=== PATIENT | female | born 1955 | race Caucasian/White ===

== ENCOUNTER 2019-09-17 07:42 | Outpatient (CLI) | payer OTHER, SELFPAY ==
[2019-09-17 08:31] LABS: Basophils Percent Auto 0.2 % (0.2-1.2); Eosinophils Absolute Auto 0.1 K/mm3 (0-0.3); Eosinophils Percent Auto 2.4 % (0-4.4); Hematocrit 41.1 % (37.0-47.0); Hemoglobin 13.4 g/dL (12.0-15.0); Immature Granulocyte Absolute 0.01 K/mm3 (0.00-0.031); Immature Granulocyte Percent A 0.2 % (0-0.5); Lymphocytes Absolute Auto 1.92 K/mm3 (0.9-3.2); Lymphocytes Percent Auto 35.6 % (18.3-44.2); Mean Corpuscular HGB Conc 32.6 g/dl (32-36); Mean Corpuscular Hemoglobin 29.8 pg (26-34); Mean Corpuscular Volume 91.5 fl (80-100); Mean Platelet Volume 9.3 fl (7.4-10.4); Monocytes Absolute Auto 0.4 K/mm3 (0.1-0.6); Monocytes Percent Auto 6.9 % (2.6-8.5); Neutrophils Percent Auto 54.7 % (45.5-73.1); Platelet Count Result 281 k/mm3 (150-375); Red Blood Count 4.49 M/mm3 (4.2-5.4); Red Cell Distribution Width 12.9 % (11.5-14.5); White Blood Count 5.4 K/mm3 (4.5-10.0)
[2019-09-17 08:56] LABS: Alanine Aminotransferase 32 U/L (4-35); Albumin Level 4.3 g/dL (3.5-5.1); Alkaline Phosphatase 90 U/L (38-126); Aspartate Amino Transferase 36 U/L (14-36); Bilirubin,Total 0.7 mg/dL (0.2-1.3); Blood Urea Nitrogen 18 mg/dL (7-17); Calcium 9.1 mg/dL (8.4-10.2); Carbon Dioxide 27 mmol/L (22-30); Chloride 101 mmol/L (98-107); Cholesterol 199 mg/dL (0-200); Estimated Glomerular Filt Rate 56; Glucose 97 mg/dL (65-105); HDL Direct 55 mg/dL; Sodium 141 mmol/L (137-145); Triglycerides 86 mg/dL (<150)
[2019-09-17 09:07] LABS: LDL Cholesterol Direct 119 mg/dL
[2019-09-17 11:54] LABS: Vitamin D 25 Hydroxy 29.5 ng/mL
== END 2019-09-17 07:43 | disposition home or self-care (01) ==
PROVIDERS: PCP Family Medicine; Visit Provider Nurse Practitioner
DX: R53.83 Other fatigue (principal); E53.8 Deficiency of other specified B group vitamins; Z13.6 Encounter for screening for cardiovascular disorders; E55.9 Vitamin D deficiency, unspecified; E03.9 Hypothyroidism, unspecified; E78.5 Hyperlipidemia, unspecified; R30.0 Dysuria
CPT/HCPCS: 36415; 80053; 80061; 82306; 82607; 84443; 85025; 87086; 87088

== ENCOUNTER 2020-05-17 08:21 | Emergency (ER) | payer OTHER, SELFPAY ==
[2020-05-17 08:26] VITALS: BP 145/93; PULSE 70; RESP 16; TEMP 36.4; O2SAT 99
--- NOTE | 2020-05-17 08:38 | ED.URI ---
HPI - URI/Sore Throat General Chief Complaint: Upper Respiratory Infection Stated Complaint: sinus issues Time Seen by Provider: 05/17/20 08:32 Source: patient and RN notes reviewed Mode of arrival: ambulatory Limitations: no limitations History of Present Illness HPI Narrative: 64-year-old female presents with concern for 3-week history of sinus congestion, pressure, pain, drainage. Reports she has been taking Mucinex DM, using steam, using sinus rinses with little relief. Reports symptoms have worsened in the last several days. She denies fever, malaise, body aches, chills, cough, shortness of breath. MD elicited complaint: nasal congestion Related Data Allergies Allergy/AdvReac Type Severity Reaction Status Date / Time No Known Allergies Allergy Verified 05/17/20 08:27 Review of Systems Review of Systems: Narrative: CONSTITUTIONAL: Denies malaise, chills, sweats, or fever. EYES: Denies visual changes, redness, or discharge. ENT: Reports rhinorrhea, congestion, sinus pain. Denies otalgia and sore throat. CARDIOVASCULAR: Denies chest pain, palpitations, or edema. RESPIRATORY: Denies cough or dyspnea. GASTROINTESTINAL: Denies abdominal pain, nausea, vomiting, diarrhea SKIN: Denies rash or itching. MUSCULOSKELETAL: Denies myalgia. NEUROLOGIC: Denies headache. All systems reviewed & are unremarkable except as noted in HPI and below PMFSH Past Medical History Medical History (Updated 05/17/20 @ 08:39 by Giovanna Vieyra NP) Hyperlipidemia, unspecified Hypothyroidism, unspecified Social History Social History Smoking status: Never smoker Alcohol intake: current Comments At time of signature, agree with nursing past medical, surgical, social and family history. There is no relevant family history pertinent to the presenting complaint Exam Narrative: Exam Narrative: GENERAL: Well-appearing, well-nourished, and in no acute distress. HEAD: Normocephalic EYES: PERRLA, conjunctivae clear ENT: Nares clear, turbinates edematous and erythematous, sinus tenderness. Mucous membranes moist. TM pearly amezcua with dull light reflex bilaterally; no tragal tenderness. Oropharynx mildly erythematous without lesions. Tonsils not enlarged and without exudate, no drooling, no hoarseness, no trismus, uvula midline. NECK: Supple. No lymphadenopathy CHEST: Clear to auscultation, breath sounds equal. No wheezing, rhonchi, rales, or stridor. No respiratory distress, speaks in full sentences. HEART: Regular rate and rhythm. No murmur heard. SKIN: Warm, dry, no rash. NEURO: Alert and oriented x3. PSYCH: Normal mood and affect Course Course Emergency Course: Patient is aware of diagnosis, understands and agrees to treatment plan. Anticipatory guidance given. Patient agrees to follow-up as directed and is aware of reasons to seek care at the emergency department. Portions of this record may have been created with voice recognition software Vital Signs Vital signs: Vital Signs Temperature 97.5 F L 05/17/20 08:26 Pulse Rate 70 05/17/20 08:26 Respiratory Rate 16 05/17/20 08:26 Blood Pressure 145/93 H 05/17/20 08:26 Pulse Oximetry 99 05/17/20 08:26 Temperature 97.5 F L 05/17/20 08:26 Pulse Rate 70 05/17/20 08:26 Respiratory Rate 16 05/17/20 08:26 Blood Pressure 145/93 H 05/17/20 08:26 Pulse Oximetry 99 05/17/20 08:26 Reviewed. MDM - URI/Sore Throat MDM Narrative Medical decision making narrative: Differential diagnosis considered: Espinoza virus, strep pharyngitis, allergic rhinitis, upper respiratory tract infection, sinusitis, rhinosinusitis, nasopharyngitis. viral pharyngitis, otitis media, otitis externa, pneumonia, bronchitis, viral cough syndrome, viral syndrome, and influenza. Exam findings show no acute concerns or changes; patient is non-toxic appearing and is in no distress. Patient is appropriate for outpatient treatment and follow-up. Critical Care Time Critical Care Time Critical Care Time:
== END 2020-05-17 08:50 | disposition home or self-care (01) ==
PROVIDERS: Emergency Provider Nurse Practitioner; PCP Nurse Practitioner Family
DX: J01.90 Acute sinusitis, unspecified (principal); E78.5 Hyperlipidemia, unspecified; E03.9 Hypothyroidism, unspecified
CPT/HCPCS: 99213; G0463

== ENCOUNTER 2020-08-02 09:28 | Emergency (ER) | payer OTHER, SELFPAY ==
[2020-08-02 09:45] VITALS: BP 141/85; PULSE 81; RESP 16; TEMP 36.1; O2SAT 99
--- NOTE | 2020-08-02 10:14 | ED.URI ---
HPI - URI/Sore Throat General Chief Complaint: Upper Respiratory Infection Stated Complaint: HEADACHE/SINUS DRAINAGE Time Seen by Provider: 08/02/20 10:14 Source: patient and RN notes reviewed Mode of arrival: ambulatory Limitations: no limitations History of Present Illness HPI Narrative: 64-year-old female presents to the urgent care with complaints of I have a sinus infection . Patient states that she has had increased sinus pressure, pain, drainage for over 2 weeks. Has a history of chronic sinus issues and normally takes Mucinex and Zyrtec-D along with Flonase but has not been taking them for a couple of weeks due to the holidays. Patient states that over the last 2 weeks it has gradually gotten worse. States she had sinus surgery approximately 10 years ago and it did not help. Denies fevers, cough, chest pain, shortness of breath or abdominal pain Related Data Allergies Allergy/AdvReac Type Severity Reaction Status Date / Time No Known Allergies Allergy Verified 08/02/20 09:35 Review of Systems Review of Systems: Narrative: CONSTITUTIONAL: Denies fever, chills, or sweats. EYES: Denies visual changes, redness, or discharge. ENT: Positive for rhinorrhea, congestion, denies sore throat, or otalgia. CARDIOVASCULAR: Denies chest pain, palpitations, or edema. RESPIRATORY: Denies cough or dyspnea. GASTROINTESTINAL: Denies abdominal pain, nausea, vomiting, or diarrhea. GENITOURINARY: Denies dysuria or hematuria. SKIN: Denies rash or itching. MUSCULOSKELETAL: Denies back pain, joint pain, or myalgia. NEUROLOGIC: Denies headache, numbness, or weakness. PSYCHIATRIC: Denies anxiety or depression. All other systems reviewed are negative, except as documented in HPI. [facility] Past Medical History Medical History Hyperlipidemia, unspecified Hypothyroidism, unspecified Social History Social History Smoking status: Never smoker Alcohol intake: current Comments At the time of my signature, I reviewed and agree with the nursing past medical, surgical, social, and family history. There is no relevant family history pertinent to the patient complaint. Exam Narrative: Exam Narrative: GENERAL: This is a well-nourished, well-developed patient. Mildly ill in appearance. HEAD: normocephalic, atraumatic. EYES: PERRL. Sclera clear/white. Vision is grossly intact. EARS: External ears normal, auditory canals clear and without drainage, TMs without perforation. Hearing grossly intact. TMs clear fluid with bulging noted. No signs of infection NOSE: Positive nasal discharge, nares boggy with redness, positive for thick yellowish rhinorrhea. THROAT: Mucous membranes moist, posterior pharynx postnasal drip noted NECK: Neck supple, non-tender without lymphadenopathy, masses or thyromegaly. CARDIOVASCULAR: Regular rate and rhythm without murmurs, gallops, or rubs. RESPIRATORY: Clear to auscultation. Breath sounds equal bilaterally. No wheezes, rales, or rhonchi. GASTROINTESTINAL: Abdomen soft, non-tender, nondistended. . SKIN: warm, intact with no suspicious lesions or rash, good texture and turgor. NEURO: awake, alert, and oriented to person, place and time. There were no obvious focal neurologic abnormalities. EXTREMITIES: No clubbing, cyanosis, or edema. Course Vital Signs Vital signs: Vital Signs Temperature 97.0 F L 08/02/20 09:45 Pulse Rate 81 08/02/20 09:45 Respiratory Rate 16 08/02/20 09:45 Blood Pressure 141/85 H 08/02/20 09:45 Pulse Oximetry 99 08/02/20 09:45 Temperature 97.0 F L 08/02/20 09:45 Pulse Rate 81 08/02/20 09:45 Respiratory Rate 16 08/02/20 09:45 Blood Pressure 141/85 H 08/02/20 09:45 Pulse Oximetry 99 08/02/20 09:45 Reviewed and discussed blood pressure with patient and the importance of following up MDM - URI/Sore Throat Differential Diagnosis Differential diagnosis: Likely upper respiratory infection, otitis media, sinusitis, vir
== END 2020-08-02 10:35 | disposition home or self-care (01) ==
PROVIDERS: Emergency Provider Nurse Practitioner; PCP Family Medicine
DX: J32.9 Chronic sinusitis, unspecified (principal); H65.03 Acute serous otitis media, bilateral; E78.5 Hyperlipidemia, unspecified; E03.9 Hypothyroidism, unspecified
CPT/HCPCS: 99213; G0463

== ENCOUNTER 2021-08-03 10:01 | Emergency (ER) | payer OTHER, SELFPAY ==
[2021-08-03 10:09] VITALS: BP 148/80; PULSE 103; RESP 16; TEMP 36.6; O2SAT 99
--- NOTE | 2021-08-03 10:11 | ED.URI ---
HPI - URI/Sore Throat General Chief Complaint: Upper Respiratory Infection Stated Complaint: sinus infection Time Seen by Provider: 08/03/21 10:13 Source: patient and RN notes reviewed Mode of arrival: ambulatory Limitations: no limitations History of Present Illness HPI Narrative: 65-year-old female presents with concern for sinus pressure, congestion, copious drainage for 3 weeks. Reports she has been taking Mucinex and Zyrtec without relief. She reports cough. Reports she had chills today. She reports she has been vaccinated for Covid, was not tested for Covid at the onset of her illness. MD elicited complaint: cough and sore throat Related Data Home Medications Medication Instructions Recorded Confirmed levothyroxine [Synthroid] 100 mcg PO DAILY 08/03/21 08/03/21 Allergies Allergy/AdvReac Type Severity Reaction Status Date / Time No Known Allergies Allergy Verified 08/03/21 10:17 Review of Systems Review of Systems: CONSTITUTIONAL: Reports malaise, chills. Denies sweats, or fever. EYES: Denies visual changes, redness, or discharge. ENT: Reports rhinorrhea, congestion, sinus pain. Denies otalgia and sore throat. CARDIOVASCULAR: Denies chest pain, palpitations, or edema. RESPIRATORY: Reports cough. Denies dyspnea. GASTROINTESTINAL: Denies abdominal pain, nausea, vomiting, diarrhea SKIN: Denies rash or itching. MUSCULOSKELETAL: Denies myalgia. NEUROLOGIC: Denies headache. All systems reviewed & are unremarkable except as noted in HPI and below PMFSH Past Medical History Medical History Hyperlipidemia, unspecified Hypothyroidism, unspecified Social History Social History Smoking status: Never smoker Alcohol intake: current Comments At time of signature, agree with nursing past medical, surgical, social and family history. There is no relevant family history pertinent to the presenting complaint Exam Narrative: GENERAL: Well-appearing, well-nourished, and in no acute distress. HEAD: Normocephalic EYES: PERRLA, conjunctivae clear ENT: Nares clear, turbinates edematous and erythematous, sinus tenderness. Mucous membranes moist. TM pearly amezcua with dull light reflex bilaterally; no tragal tenderness. Oropharynx not erythematous without lesions. Tonsils not enlarged and without exudate, no drooling, no hoarseness, no trismus, uvula midline. NECK: Supple. No lymphadenopathy CHEST: Clear to auscultation, breath sounds equal. No wheezing, rhonchi, rales, or stridor. No respiratory distress, speaks in full sentences. HEART: Regular rate and rhythm. No murmur heard. SKIN: Warm, dry, no rash. NEURO: Alert and oriented x3. PSYCH: Normal mood and affect Course Course Emergency Course: Patient is aware of diagnosis, understands and agrees to treatment plan. Anticipatory guidance given. Patient agrees to follow-up as directed and is aware of reasons to seek care at the emergency department. Portions of this record may have been created with voice recognition software Level of Care: Express Care Visit Vital Signs Vital signs: Vital Signs Temperature 97.8 F 08/03/21 10:09 Pulse Rate 103 H 08/03/21 10:09 Respiratory Rate 16 08/03/21 10:09 Blood Pressure 148/80 H 08/03/21 10:09 Pulse Oximetry 99 08/03/21 10:09 Temperature 97.8 F 08/03/21 10:09 Pulse Rate 103 H 08/03/21 10:09 Respiratory Rate 16 08/03/21 10:09 Blood Pressure 148/80 H 08/03/21 10:09 Pulse Oximetry 99 08/03/21 10:09 Reviewed. Patient has been instructed to follow up with her primary care provider within the next week regarding her elevated blood pressure today. MDM - URI/Sore Throat MDM Narrative Medical decision making narrative: Differential diagnosis considered: Espinoza virus, strep pharyngitis, allergic rhinitis, upper respiratory tract infection, sinusitis, rhinosinusitis, nasopharyngitis. viral pharyngitis, otitis media, otitis externa, pneumonia, bronchiti
== END 2021-08-03 10:30 | disposition home or self-care (01) ==
PROVIDERS: Emergency Provider Nurse Practitioner; PCP Family Medicine
DX: J01.90 Acute sinusitis, unspecified (principal); E78.5 Hyperlipidemia, unspecified; E03.9 Hypothyroidism, unspecified
CPT/HCPCS: 99213; G0463

== ENCOUNTER 2022-05-30 10:26 | Emergency (ER) | payer MEDICARE, SELFPAY ==
[2022-05-30 10:34] VITALS: BP 135/75; PULSE 86; RESP 16; TEMP 37.1; O2SAT 100
--- NOTE | 2022-05-30 10:34 | ED.URI ---
HPI - URI/Sore Throat General Chief Complaint: Upper Respiratory Infection Stated Complaint: Headache/earache/sore throat/drainage Time Seen by Provider: 05/30/22 10:34 Source: patient Limitations: no limitations History of Present Illness HPI Narrative: 66-year-old female presents with complaint nasal congestion, sinus pressure and congestion, facial pain, postnasal drainage intermittent sore throat for 10 days. Afebrile. Taking Zyrtec Flonase and Mucinex with little relief. Reports normally gets a steroid and antibiotic to treat a sinus infection. Has been blowing out green drainage from nose. All systems reviewed and negative except as noted above. Related Data Home Medications Medication Instructions Recorded Confirmed levothyroxine 100 mcg tablet 100 mcg PO DAILY 08/03/21 05/30/22 (Synthroid) Allergies Allergy/AdvReac Type Severity Reaction Status Date / Time No Known Allergies Allergy Verified 05/30/22 10:29 Review of Systems Review of Systems: CONSTITUTIONAL: Denies fever, chills, or sweats. EYES: Denies visual changes, redness, or discharge. ENT: Reports rhinorrhea, congestion, sore throat, sinus pressure. Denies otalgia. CARDIOVASCULAR: Denies chest pain, palpitations, or edema. RESPIRATORY: Denies cough or dyspnea. GASTROINTESTINAL: Denies abdominal pain, nausea, vomiting, or diarrhea. GENITOURINARY: Denies dysuria or hematuria. SKIN: Denies rash or itching. MUSCULOSKELETAL: Denies back pain, joint pain, or myalgia. NEUROLOGIC: Denies headache, numbness, or weakness. PSYCHIATRIC: Denies anxiety or depression. All other systems reviewed are negative, except as documented in HPI. [facility] Past Medical History Medical History Hyperlipidemia, unspecified Hypothyroidism, unspecified Social History Social History Smoking status: Never smoker Alcohol intake: current Comments At time of signature, agree with nursing past medical, surgical, social and family history. There is no relevant family history pertinent to the presenting complaint. Exam Narrative: GENERAL: This is a well-nourished, well-developed patient, in no apparent distress. HEAD: normocephalic, atraumatic. EYES: PERRL. Sclera clear/white. Vision is grossly intact. EARS: External ears normal, auditory canals clear and without drainage, fluid to bilateral TMs, dull light reflex. No erythema or perforation. NOSE: External nose normal with clear nasal drainage, erythema to bilateral nares without swelling. Maxillary sinus tenderness bilateral. THROAT: Mucous membranes moist, clear postnasal drainage. NECK: Neck supple, non-tender without lymphadenopathy, masses or thyromegaly. CARDIOVASCULAR: Regular rate and rhythm without murmurs, gallops, or rubs. RESPIRATORY: Clear to auscultation. Breath sounds equal bilaterally. No wheezes, rales, or rhonchi. SKIN: warm, Dry, intact with no suspicious lesions or rash, good texture and turgor. NEURO: awake, alert, and oriented to person, place and time. There were no obvious focal neurologic abnormalities. EXTREMITIES: No joint tenderness, effusion, or edema noted. Course Course Level of Care: Express Care Visit Vital Signs Vital signs: Vital Signs Temperature 37.1 C 05/30/22 10:34 Pulse Rate 86 05/30/22 10:34 Respiratory Rate 16 05/30/22 10:34 Blood Pressure 135/75 05/30/22 10:34 Pulse Oximetry 100 05/30/22 10:34 Temperature 37.1 C 05/30/22 10:34 Pulse Rate 86 05/30/22 10:34 Respiratory Rate 16 05/30/22 10:34 Blood Pressure 135/75 05/30/22 10:34 Pulse Oximetry 100 05/30/22 10:34 Reviewed MDM - URI/Sore Throat MDM Narrative Medical decision making narrative: Patient is aware of diagnosis, understands and agrees to treatment plan. Anticipatory guidance given. Patient agrees to follow-up as directed and is aware of reasons to seek care at the emergency department. Portions of this record may
== END 2022-05-30 10:43 | disposition home or self-care (01) ==
PROVIDERS: Emergency Provider Nurse Practitioner Family; PCP Family Medicine
DX: J01.90 Acute sinusitis, unspecified (principal); E78.5 Hyperlipidemia, unspecified; E03.9 Hypothyroidism, unspecified
CPT/HCPCS: 99213; G0463

== ENCOUNTER 2022-07-08 15:49 | Outpatient (CLI) | payer MEDICARE, SELFPAY ==
[2022-07-08 19:45] LABS: Alanine Aminotransferase 32 U/L (6-35); Albumin Level 4.3 g/dL (3.5-5.1); Alkaline Phosphatase 92 U/L (38-126); Anion Gap 4 mmol/L (8-16); Aspartate Amino Transferase 43 U/L (14-36); Bilirubin,Total 0.8 mg/dL (0.2-1.3); Blood Urea Nitrogen 19 mg/dL (7-17); Carbon Dioxide 31 mmol/L (22-30); Chloride 101 mmol/L (98-107); Cholesterol 192 mg/dL (0-200); Estimated Glomerular Filt Rate > 60; Glucose 91 mg/dL (65-110); HDL Direct 51 mg/dL; Potassium 3.4 mmol/L (3.4-5.0); Sodium 136 mmol/L (137-145); Triglycerides 146 mg/dL (<150)
[2022-07-08 19:55] LABS: LDL Cholesterol Direct 98 mg/dL
[2022-07-08 20:02] LABS: Basophils Percent Auto 0.3 % (0.2-1.2); Eosinophils Absolute Auto 0.2 K/mm3 (0-0.3); Eosinophils Percent Auto 2.6 % (0-4.4); Hematocrit 41.4 % (37.0-47.0); Hemoglobin 13.4 g/dL (12.0-15.0); Immature Granulocyte Absolute 0.01 K/mm3 (0.00-0.031); Immature Granulocyte Percent A 0.2 % (0-0.5); Lymphocytes Absolute Auto 2.31 K/mm3 (0.9-3.2); Lymphocytes Percent Auto 39.3 % (18.3-44.2); Mean Corpuscular HGB Conc 32.4 g/dl (32-36); Mean Corpuscular Volume 92.6 fl (80-100); Mean Platelet Volume 9.6 fl (7.4-10.4); Monocytes Absolute Auto 0.5 K/mm3 (0.1-0.6); Monocytes Percent Auto 7.7 % (2.6-8.5); Neutrophils Absolute Auto 2.9 K/mm3 (1.3-6.7); Neutrophils Percent Auto 49.9 % (45.5-73.1); Platelet Count Result 263 k/mm3 (150-375); Red Blood Count 4.47 M/mm3 (4.2-5.4); Red Cell Distribution Width 13.6 % (11.5-14.5); White Blood Count 5.9 K/mm3 (4.5-10.0)
[2022-07-08 20:50] LABS: Vitamin D 25 Hydroxy 37.5 ng/mL
== END 2022-07-08 15:50 | disposition home or self-care (01) ==
LOC: ANHGOSHLAB 15:50
PROVIDERS: PCP Family Medicine; Visit Provider Nurse Practitioner Family
DX: E03.9 Hypothyroidism, unspecified (principal); I10 Essential (primary) hypertension; E78.5 Hyperlipidemia, unspecified; E55.9 Vitamin D deficiency, unspecified
CPT/HCPCS: 36415; 80053; 80061; 82306; 84443; 85025

== ENCOUNTER 2022-08-21 19:45 | Outpatient (NON) | payer MEDICARE, SELFPAY | END 2022-08-21 19:46 | disposition home or self-care (01) | PROVIDERS: PCP Family Medicine; Visit Provider Nurse Practitioner Family | DX: R39.9 Unspecified symptoms and signs involving the genitourinary system (principal) | CPT/HCPCS: 87086; 87088 ==

== ENCOUNTER → 2022-10-16 14:47 | Outpatient (CLI) | payer MEDICARE, SELFPAY ==
--- NOTE | ~2022-10-16 | MM_ITS ---
EXAMINATION: MM screening emile BI w ivan HISTORY: Screening TECHNIQUE: Craniocaudal and mediolateral oblique 3-D tomosynthesis images were obtained and synthetic 2-D images were generated. CAD analysis was submitted and interpreted. COMPARISON: No prior mammogram is available for comparison at this institution. BREAST PARENCHYMAL COMPOSITION: The breasts are almost entirely fatty. FINDINGS: There is no evidence of suspicious mass, calcification, or architectural distortion to sugg est malignancy in either breast. There has been no suspicious interval change. IMPRESSION: 1. No mammographic evidence of malignancy. 2. Recommend routine screening mammography in one year. BI-RADS Category 1: Negative Reviewed, dictated and finalized at location A.
--- NOTE | ~2022-10-16 | DEXA_ITS ---
Bone Density Report Name: WILLIE GEORGES Age: 67 Sex: Female Ethnicity: White Date of : 1955 Indication: postmenopausal; screening for osteoporosis; height loss; Referring Provider: Belle Juarez Study: Bone densitometry was performed. Exam Date: October 16, 2022 Accession number: [id number] Bone Density: Region BMD T-score Z-score Classification AP Spine (L1-L4) 0.943 -0.9 0.9 Normal Femoral Neck (Left) 0.655 -1.8 -0.2 Osteopenia Total Hip (Left) 0.813 -1.1 0.2 Osteopenia Femoral Neck (Right) 0.615 -2.1 -0.5 Osteopenia Total Hip (Right) 0.816 -1.0 0.2 Normal Total Hip Mean 0.815 -1.1 0.2 Osteopenia World Health Organization criteria for BMD impression classify patients as: Normal (T-score at or above -1.0), Osteopenia (T-score between -1.0 and -2.5), or Osteoporosis (T-score at or below -2.5). 10-year Fracture Risk(1): Major Osteoporotic Fracture 11% Hip Fracture 1.7% Reported Risk Factors: [place] (), Neck BMD=0.615, BMI=27.5 (1) FRAX(R) Version 3.08. Fracture probability calculated for an untreated patient. Fracture probability may be lower if the patient has received treatment. Clinical Information Provided by Patient: Has used the following medications: Vitamin D, Calcium, MTV, SYNTHROID Patient maximum height was 66.5 Menopause Age: 47 Drinks caffeinated beverages Onset of menses at age 13 Number of children 2 Impression: The patient has low bone mass, based on the Right Femoral Neck T-score. The patient has an estimated ten-year risk of hip fracture of 1.7% and an estimated ten-year risk of major fracture of 11%, based on the WHO FRAX algorithm. Discussion: BONE DENSITY IS LOW AT ONE OR MORE SKELETAL SITES. This patient's lowest T-score is low at one or more skeletal sites. It meets the World Health Organization's (WHO) criteria for ?low bone mass? (T-score between -1.0 and -2.5). The patient's 10-year risk of fracture as calculated by FRAX is less than the threshold where pharmacological therapy is recommended by the National Osteoporosis Foundation (NOF). However, all treatment decisions require clinical judgment and consideration of individual patient factors, including patient preferences, comorbidities, previous drug use, risk factors not captured in the FRAX model (e.g., frailty, falls, vitamin D deficiency, increased bone turnover, interval significant decline in bone density) and possible under or overestimation of fracture risk by FRAX. The patient should follow a healthful lifestyle (good nutrition with adequate calcium and vitamin D, and appropriate weight-bearing exercise). Follow-Up: Consider repeating this study in 2 to 3 years to reassess this patient's status, or sooner if there is some new clinical indication. Reported by: KAYLEE on
== END ==
PROVIDERS: PCP Nurse Practitioner Family; Visit Provider Nurse Practitioner Family
DX: Z12.31 Encounter for screening mammogram for malignant neoplasm of breast (principal); Z78.0 Asymptomatic menopausal state; M85.852 Other specified disorders of bone density and structure, left thigh; M85.851 Other specified disorders of bone density and structure, right thigh
CPT/HCPCS: 77063; 77067; 77080

== ENCOUNTER → 2023-07-10 09:45 | Outpatient (CLI) | payer MEDICARE, SELFPAY ==
--- NOTE | ~2023-07-10 | XR_ITS ---
Right Knee Technique: AP and lateral views were obtained. Clinical History: Pain Findings: No fracture or dislocation is seen. Osseous alignment is anatomic. Joint spaces are preserv ed without degenerative or erosive change. Soft tissues are unremarkable. No joint effusion is seen. Impression: Unremarkable right knee radiographs. Reviewed, dictated and finalized at [facility]. SPORTATION DISPATCH MANAGER Impression: Unremarkable right knee radiographs.
--- NOTE | ~2023-07-10 | XR_ITS ---
Left Knee Technique: AP and lateral views were obtained. Clinical History: Pain Findings: No fracture or dislocation is seen. Osseous alignment is anatomic. Joint spaces are preserv ed without degenerative or erosive change. Soft tissues are unremarkable. No joint effusion is seen. Impression: Unremarkable left knee radiographs. Reviewed, dictated and finalized at [facility]. SORTING SUPERVISOR Impression: Unremarkable left knee radiographs.
== END ==
PROVIDERS: PCP Nurse Practitioner Family; Visit Provider Nurse Practitioner Family
DX: M25.561 Pain in right knee (principal); M25.562 Pain in left knee
CPT/HCPCS: 73560

== ENCOUNTER 2023-08-27 10:00 | Outpatient (RCR) | payer MEDICARE, SELFPAY ==
--- NOTE | 2023-07-30 11:54 | OPREHPOC ---
Outpatient Therapy Plan of Care This is a Multidisciplinary Plan of Care that may contain components documented by all disciplines (PT, OT, and ST.) PT Problem 1 PT Problem #1 Knowledge Deficit PT Goal 1 Goal Pt to be IND with issued HEP Target Visit 8 PT Problem 2 PT Problem #2 Pain PT Goal 1 Goal Pt to report knee pain no greater than 3/10 in the last week. Target Visit 8 PT Goal 2 Goal Pt to report 75% improvement in overall symptoms. PT Problem 3 PT Problem #3 Impaired Range of Motion PT Goal 1 Goal Pt to demonstrate terminal knee extension to 0 deg . Target Visit 8 PT Problem 4 PT Problem #4 Impaired Functional Mobil PT Goal 1 Goal Pt to demonstrate floor to stand without UE support. PT Problem 5 PT Problem #5 Impaired Strength PT Goal 1 Goal Pt to improve global hip strength to grossly 4+/5 Target Visit 8
--- NOTE | 2023-07-30 11:54 | PTOPEVAL1 ---
Assessment and note entered by Renate Valle, PT, DPT Evaluation Information Assessment Status Evaluation Diagnosis low back and norm knee pain R>L Subjective Information Pt reports chronic back pain for many years, she has had multiple rounds of therapy for this in the past. She states her back is feeling pretty. She states her knees have hurts for the last couple of years, in the last couple of months she has noticed an increase in pain, specifically in the R knee. She has been using hot/cold modalities to treat this. She reports a stabbing pain inferior to her patella. She states she is used to walking 1.5 miles on the treadmill daily and would like to get back to this, she has reports difficulty getting up from the ground when playing with her grandchildren. Reported Pain Level Pain Score 0: Self Report Assessment PT Clinical Summary Caitlin presents to therapy today for her initial evaluation with a diagnosis of low back and norm knee pain, her primary complaint this date is R knee pain. Today she demonstrates decreased norm hip strength, decreased R knee ROM, positive knee meniscus test, and deviations during stair ambulation. Skilled therapy services are indicated to address the deficits noted above, to manage pain , and to improve functional mobility. Plan of Care Interventions Electrical Stimulation,Gait Training,Hot Pack/Cold Pack,Manual Therapy,Neuro Re-education,Patient/ Caregiver Educati,Therapeutic Activities, Therapeutic Exercise PT Services Indicated Yes Treatment Frequency and 2x/wk for 8 visits Duration These treatments will address the objective and functional deficits as defined above. The patient will be advanced safely and appropriately in order for the patient to progress towards his/her prior level of function. Additional exercises will be introduced and as well as a comprehensive home exercise program upon discharge, if needed, ?to ensure carryover of functional gains achieved in the clinic. This treatment plan has been reviewed and agreement upon by the patient.
--- NOTE | 2023-08-27 10:51 | PTOPDC ---
Assessment and note entered by Renate Valle, PT, DPT Evaluation Information Assessment Status Discharge Diagnosis low back and norm knee pain R>L Subjective Information Pt states her knee is doing okay, she states last night she got stabbing pains in the middle night. She states the stabbing pains are pretty consistent. Pt states her knee is overall the same since starting therapy, she states she same amount of good days and bad days. She states she can tell her muscles have gotten stronger but it has not changed her pain. Reported Pain Level Pain Score 0,4: Self Report Pain Score 0,3: Self Report Assessment PT Clinical Summary Caitlin presents to therapy today for her progress report following 8 visits of skilled therapy to treat her diagnosis of low back and norm knee pain, her primary complaint this date is R knee pain. Today she demonstrates improved R knee ROM, improved BLE strength, and improved body mechanics without an improvement in pain, tenderness, or functional mobility. D/t lack of progress with therapy despite consistency with her exercises, it was recommended pt follow up with her referring provider regarding next steps in her POC.
== END 2023-08-27 11:36 | disposition home or self-care (01) ==
LOC: ANHGOSHPT 10:00
PROVIDERS: PCP Nurse Practitioner Family; Visit Provider Nurse Practitioner Family
DX: M25.569 Pain in unspecified knee (principal); M54.9 Dorsalgia, unspecified
CPT/HCPCS: 97110; 97112; 97161; 97530

== ENCOUNTER 2023-10-05 15:30 | Outpatient (RCR) | payer MEDICARE, SELFPAY ==
--- NOTE | 2023-10-02 14:09 | OPREHPOC ---
Outpatient Therapy Plan of Care This is a Multidisciplinary Plan of Care that may contain components documented by all disciplines (PT, OT, and ST.) PT Problem 1 PT Problem #1 Knowledge Deficit PT Goal 1 Goal Pt to be IND with issued HEP Target Visit 12 PT Problem 2 PT Problem #2 Pain PT Goal 1 Goal Pt to report knee pain no greater than 3/10 in the last week. Target Visit 12 PT Goal 2 Goal Pt to report 50% improvement in overall symptoms. Target Visit 8 PT Problem 3 PT Problem #3 Impaired Functional Mobil PT Goal 1 Goal Pt to demonstrate neutral LE alignment with good form during a functional squat. Target Visit 12 PT Problem 4 PT Problem #4 Impaired Gait PT Goal 1 Goal Pt to report being able to walk for 20 mins without an increase in knee pain. Target Visit 12
--- NOTE | 2023-10-02 14:09 | PTOPEVAL1 ---
Assessment and note entered by Renate Valle, PT, DPT Evaluation Information Assessment Status Evaluation Diagnosis R knee pain Subjective Information Pt is here again for continued knee pain. She completed 4 weeks of therapy in July without an benefit. Since then she states she tried a few weeks of rest, which helped her knee pain, but she was unable to do the activities that she enjoys, walking for exercise. She has been doing the exercises intermittently. 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 She reports intermittent stabbing pain at her medial knee joint line at rest. Reported Pain Level Pain Score 5: Self Report Assessment PT Clinical Summary Gin presents to therapy today for her initial evaluation with a diagnosis of R knee pain. Today to reports medial joint line tenderness as well as tenderness of the posterior fossa and distal quad insertion. Special tests for the knee were negative and did not cause an increase in pain. She demonstrates norm hip abductor weakness that contributes to increased valgus stresses during functional mobility tasks. Skilled therapy services are indicated to address the deficits noted above, to manage pain, to improve stability, and to return to PLOF. Plan of Care Interventions Electrical Stimulation,Gait Training,Hot Pack/Cold Pack,Manual Therapy,Patient/Caregiver Educati, Therapeutic Activities,Therapeutic Exercise PT Services Indicated Yes Treatment Frequency and 1-2x/wk for 12 visits Duration These treatments will address the objective and functional deficits as defined above. The patient will be advanced safely and appropriately in order for the patient to progress towards his/her prior level of function. Additional exercises will be introduced and as well as a comprehensive home exercise program upon discharge, if needed, ?to ensure carryover of functional gains achieved in the clinic. This treatment plan has been reviewed and agreement upon by the patient.
--- NOTE | 2023-10-14 12:51 | PCPTNOTE ---
Patient called to cancel appointment 10/15/23 due to wanting to wait to hear back from insurance.
--- NOTE | 2023-12-09 10:08 | PTOPDC ---
Assessment and note entered by Blair Orantes, PT Evaluation Information Assessment Status Discharge - Pt Not Present Diagnosis R knee pain Subjective Information Pt is here again for continued knee pain. She completed 4 weeks of therapy in July without an benefit. Since then she states she tried a few weeks of rest, which helped her knee pain, but she was unable to do the activities that she enjoys, walking for exercise. She has been doing the exercises intermittently. 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 She reports intermittent stabbing pain at her medial knee joint line at rest. Assessment PT Clinical Summary Patient was approved for MRI at this time. Requests discharge from therapy at this time. Will be discharged. Please refer to last treatment note for discharge status. Plan of Care PT Services Indicated D/C to HEP
== END 2023-12-09 10:38 | disposition home or self-care (01) ==
LOC: ANHGOSHPT 15:30
PROVIDERS: PCP Family Medicine; Visit Provider Nurse Practitioner Family
DX: M23.8X2 Other internal derangements of left knee (principal)
CPT/HCPCS: 97110; 97140; 97161; 97530

== ENCOUNTER 2023-12-07 13:45 | Outpatient (CLI) | payer MEDICARE, SELFPAY ==
--- NOTE | ~2023-12-07 | MR_ITS ---
EXAMINATION: MR knee LT wo con DATE: 12/07/2023 14:56 INDICATION: Internal derangement of the left knee presenting with lateral left knee pain and swelling TECHNIQUE: Magnetic resonance imaging (MRI) of the left knee was performed without intravenous contra st. Sequences included coronal PD-weighted FSE, coronal PD-weighted FS FSE, sagittal T2-weighted FSE , sagittal PD-weighted FS FSE and axial PD weighted fat saturated FSE. COMPARISON: None. FINDINGS: Medial compartment: Medial meniscus is normal. Deep chondral ulceration and fissuring with underlying cortical irregulari ty and mild subarticular edema-like signal change at the central weightbearing medial femoral condyle . Lateral compartment: Small complex tear with both vertical and horizontal components at the body of the lateral meniscus. Deep chondral ulceration with additional cortical irregularity and mild subarticular edema-like signa l change at the central weightbearing lateral femoral condyle. There is additional deep chondral fiss uring with underlying spiculated edema-like signal change at the central aspect of the lateral patell ar facet. Patellofemoral compartment: Deep chondral fissuring with underlying subarticular edema-like signal change at the cephalad aspect of the patellar apical ridge and at the inferomedial aspect of the medial patellar facet. Partial-thi ckness chondral ulceration and deep fissuring with additional cortical irregularity and mild edema-li ke signal change at the caudal aspect of the trochlear groove and small portion of the immediately ad jacent inferior aspect of the medial and lateral trochlea. Ligaments and tendons: Anterior and posterior cruciate ligaments are normal. The medial collateral ligament and fibular maco ateral ligament complex are normal. The extensor mechanism is normal. The visualized medial and later al hamstring tendons as well as the iliotibial band are normal. Fluid: Physiologic amount of fluid in the joint space. No loose osteochondral bodies identified. Mild prepat ellar edema without discrete bursal fluid collection. Osseous/other: No fracture or pathologic marrow replacing process. IMPRESSION: 1. Small complex tear at the body of the lateral meniscus. 2. 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 Reviewed, dictated and finalized at location B. IMPRESSION: 1. Small complex tear at the body of the lateral meniscus. 2. Mild osteoarthritis with regions of high-grade chondromalacia in all 3 cate rtments of the knee.
--- NOTE | ~2023-12-07 | MR_ITS ---
EXAMINATION: MR knee RT wo con DATE: 12/07/2023 14:56 INDICATION: Internal derangement of the right knee with right knee pain TECHNIQUE: Magnetic resonance imaging (MRI) of the right knee was performed without intravenous contr ast. Sequences included coronal PD-weighted FSE, coronal PD-weighted FS FSE, sagittal T2-weighted FS E, sagittal PD-weighted FS FSE and axial PD weighted fat saturated FSE. COMPARISON: None. FINDINGS: Medial compartment: Medial extrusion of the medial meniscal body. Complex tear involving posterior horn and posterior bod y of the medial meniscus. Partial-thickness chondral ulceration and deep fissuring at the anterior to central weightbearing medial femoral condyle and along the medial half the medial tibial plateau, th e latter with prominent subarticular edema-like and mild subarticular cystlike change. Lateral compartment: Lateral meniscus is normal. Articular cartilage is normal. Patellofemoral compartment: Deep chondral ulceration along the cephalad aspect of the patellar apical ridge. Partial-thickness ch ondral fissuring involving greater than 50% the cartilage thickness along the more caudal aspect of t he apical ridge and immediately adjacent portions of the medial and lateral patellar facets. Tiny sub articular cystlike changes along the patellar apical ridge. Deep chondral ulceration with underlying cortical irregularity and cystlike changes at the inferior aspect of the medial trochlea. Remaining t rochlear cartilage appears relatively preserved. Ligaments and tendons: Anterior and posterior cruciate ligaments are normal. The medial collateral ligament and fibular maco ateral ligament complex are normal. The extensor mechanism is normal. The visualized medial and later al hamstring tendons as well as the iliotibial band are normal. Fluid: Physiologic amount of fluid in the joint space. No loose osteochondral bodies identified. Mild prepat ellar edema without discrete bursal fluid collection. Osseous/other: No fracture or pathologic marrow replacing process. IMPRESSION: 1. Complex medial meniscal tear. 2. Mild to moderate osteoarthritis medial compartment and mild osteoarthritis in the patellofemoral c ompartment, both compartments with regions of both moderate and high-grade chondromalacia. Reviewed, dictated and finalized at location B. IMPRESSION: 1. Complex medial meniscal tear. 2. Mild to moderate osteoarthritis medial compartment and mild osteoarthritis i n the patellofemoral compartment, both compartments with regions of both modera te and high-grade chondromalacia.
== END 2023-12-07 13:46 ==
LOC: GOSHIMG 13:46
PROVIDERS: PCP Nurse Practitioner; Visit Provider Nurse Practitioner Family
DX: S83.272A Complex tear of lateral meniscus, current injury, left knee, initial encounter (principal); S83.231A Complex tear of medial meniscus, current injury, right knee, initial encounter; M17.0 Bilateral primary osteoarthritis of knee; X58.XXXA Exposure to other specified factors, initial encounter
CPT/HCPCS: 73721

== ENCOUNTER 2023-12-24 10:45 | Outpatient (CLI) | payer MEDICARE, SELFPAY ==
--- NOTE | ~2023-12-24 | MM_ITS ---
EXAMINATION: MM screening emile BI w ivan HISTORY: Screening TECHNIQUE: Craniocaudal and mediolateral oblique 3-D tomosynthesis images were obtained and synthetic 2-D images were generated. CAD analysis was submitted and interpreted. COMPARISON: 10/16/2022 BREAST PARENCHYMAL COMPOSITION: Not dense: There are scattered areas of fibroglandular density. FINDINGS: There is no evidence of suspicious mass, calcification, or architectural distortion to sugg est malignancy in either breast. There has been no suspicious interval change. IMPRESSION: 1. No mammographic evidence of malignancy. 2. Recommend routine screening mammography in one year. BI-RADS Category 1: Negative Reviewed, dictated and finalized at location B.
== END 2023-12-24 10:46 ==
LOC: MICIMG 10:47
PROVIDERS: PCP Obstetrics & Gynecology; Visit Provider Nurse Practitioner Family
DX: Z12.31 Encounter for screening mammogram for malignant neoplasm of breast (principal)
CPT/HCPCS: 77063; 77067

== ENCOUNTER 2024-05-24 12:30 | Outpatient (RCR) | payer MEDICARE, SELFPAY ==
--- NOTE | 2024-04-21 08:55 | PTOPEVAL1 ---
Assessment and note entered by Becka Jerry, PT Evaluation Information Assessment Status Evaluation Diagnosis pain in R knee, Oth tear of R knee meniscus, Unilat Primary OA R knee ICD-10 Condition Codes (PT) M25.561,Difficulty Walking R26.2,Weakness R53.1 Onset February 2023 Subjective Information Pt states was supposed to be getting a surgery tomorrow but insurance denied yesterday. Pt had already done therapy to justify MRI. Then was told had to do therapy again and medication to justify arthroscopic surgery. 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 Went to therapy in July without success. Recently recieved steroid injuection in right knee 04/14/24. Reports maybe helped a little bit but last night was really bad again. States sometimes knee gives out now. PLOF: gardening, walking on unlevel surfaces, would walk 4-5 days a week 1.5 miles on the treadmill. Was able to get on ground to play with grand kids When has pain will take OTC medication that temporarily helps. Has iced and used heat in the past but is also temporary. Reported Pain Level Pain Score 2: Self Report Assessment PT Clinical Summary Pt presents with right knee arthritis and meniscus tear. Had attended therapy previously in the year for knee pain that began in February of last year. Therapy failed, received MRI which shows meniscal tear. Was scheduled for surgery but insurance denied stating needed to go through medication management and another round of therapy prior to surgical intervention. Pt demo's gait abnormality, decreased flexibility, and weakness of multiple muscles of the RLE. Pt will benefit from therapy to address deficits, in order to prepare for surgical intervention to speed recovery and return to PLOF. Plan of Care Interventions Electrical Stimulation,Gait Training,Hot Pack/Cold Pack,Manual Therapy,Neuro Re-education,Patient/ Caregiver Educati,Therapeutic Activities, Therapeutic Exercise,Self-Care/Home Management, Ultrasound,Other PT Services Indicated Yes Treatment Frequency and 1x weekly x 6 weeks Duration These treatments will address the objective and functional deficits as defined above. The patient will be advanced safely and appropriately in order for the patient to progress towards his/her prior level of function. Additional exercises will be introduced and as well as a comprehensive home exercise program upon discharge, if needed, ?to ensure carryover of functional gains achieved in the clinic. This treatment plan has been reviewed and agreement upon by the patient.
--- NOTE | 2024-04-21 08:55 | OPREHPOC ---
Outpatient Therapy Plan of Care This is a Multidisciplinary Plan of Care that may contain components documented by all disciplines (PT, OT, and ST.) PT Problem 1 PT Problem #1 Knowledge Deficit PT Goal 1 Goal / Goal Update Pt will be independent in HEP Pt will verbalize understanding of diagnosis and prognosis Target Visit 6 PT Problem 2 PT Problem #2 Pain PT Goal 1 Goal / Goal Update Pt will report greatest pain level at 3/10 or less to improve ADLs and activities Target Visit 6 PT Problem 3 PT Problem #3 Impaired Strength PT Goal 1 Goal / Goal Update Pt will demo equal strength RLE and LLE in all tested planes Target Visit 3 PT Goal 2 Goal / Goal Update Pt will demo strength of 4/5 in all tested planes Target Visit 6 PT Problem 4 PT Problem #4 Impaired Gait PT Goal 1 Goal / Goal Update Pt will demo improved gait pattern within pain tolerance to improve pattern for post-surgical recovery Target Visit 6
--- NOTE | 2024-05-24 13:32 | PTOPDC ---
Assessment and note entered by Blair Orantes, PT Evaluation Information Assessment Status Discharge Diagnosis pain in R knee, Oth tear of R knee meniscus, Unilat Primary OA R knee ICD-10 Condition Codes (PT) M25.561,Difficulty Walking R26.2,Weakness R53.1 Onset February 2023 Subjective Information Patient reports that she feels her muscles are stronger but she is still having good days and very bad days. She is still significantly limited by pain on most days. She is following up with MD on 06/16/24 to discuss further intervention including surgery. Majority of pain is localized to the knee but she still does have some dependent swelling in the right foot at times. Morning are dependent on activity with movement. Reported Pain Level Pain Score 3: Self Report Assessment PT Clinical Summary Patient has seen objective strength improvement at this time. ROM continues to be lacking in terminal stance as measured today. Currently her greatest issue is pain related to weight bearing. She continues to have painful gait with notable hip compensation to complete gait cycle. Given patient anatomy and structural compensations she remains a candidate for surgical evaluation. Reflects needs for continued hip strengthening to ensure senior living functional improvement. Plan of Care PT Services Indicated Yes
== END 2024-05-25 09:15 | disposition home or self-care (01) ==
LOC: ANHGOSHPT 12:30
PROVIDERS: PCP Family Medicine; Visit Provider Orthopaedic Surgery
DX: M25.561 Pain in right knee (principal); S83.241A Other tear of medial meniscus, current injury, right knee, initial encounter; M17.11 Unilateral primary osteoarthritis, right knee
CPT/HCPCS: 97014; 97110; 97116; 97161; 97530; G0283

== ENCOUNTER 2024-06-20 13:49 | Outpatient (CLI) | payer MEDICARE, SELFPAY ==
--- NOTE | ~2024-06-20 | XR_ITS ---
XR finger 3rd LT min 2V Ordering provider: Belle Juarez NP History: . S69.92XA - Unspecified injury of left wrist, hand and fin... . Comparison: None. FINDINGS: BONES: Small bony fragment seen at the base of the distal phalanx of the left third finger which may indicate avulsion fracture. This also may be degenerative. Similar cysts seen opposite the interphala ngeal joints of the second finger. Small lucency is also seen in the second phalanx laterally with os teopenia of the bones. Evaluation for rheumatoid arthritis is advised. Cystic changes in the capitate bone is also seen. JOINT SPACES: Osteoarthritic changes between the scaphoid bone and trapezium is noted. Osteoarthritic changes of the first carpometacarpal joint. SOFT TISSUES: Normal. IMPRESSION: Possible avulsion fracture at the base of the distal phalanx of the left middle finger posteriorly. T his also may be degenerative. Similar appearances seen in the interphalangeal joints area of the seco nd finger. Clinical correlation advised. Small lucency in the distal phalanx base and in the capitate bone most of the bones which raises the possibility of rheumatoid arthritis. Osteoarthritic changes between the scaphoid and trapezium and in the first carpometacarpal joints. Reviewed, dictated and finalized at location A. INE PECAN GATHERER IMPRESSION: Possible avulsion fracture at the base of the distal phalanx of the left middle finger posteriorly. This also may be degenerative. Similar appearances seen in the interphalangeal joints area of the second finger. Clinical correlation adv ised. Small lucency in the distal phalanx base and in the capitate bone most of the b ones which raises the possibility of rheumatoid arthritis. Osteoarthritic changes between the scaphoid and trapezium and in the first carp ometacarpal joints.
== END 2024-06-20 13:50 | disposition home or self-care (01) ==
LOC: GOSHIMG 13:49
PROVIDERS: PCP Nurse Practitioner Family; Visit Provider Nurse Practitioner Family
DX: S69.92XA Unspecified injury of left wrist, hand and finger(s), initial encounter (principal); X58.XXXA Exposure to other specified factors, initial encounter; M18.12 Unilateral primary osteoarthritis of first carpometacarpal joint, left hand; M19.09 Primary osteoarthritis, other specified site
CPT/HCPCS: 73140

== ENCOUNTER 2024-06-27 08:17 | Outpatient (CLI) | payer MEDICARE, SELFPAY ==
[2024-06-27 14:08] LABS: Alanine Aminotransferase 18 U/L (6-35); Albumin Level 4.4 g/dL (3.5-5.1); Alkaline Phosphatase 83 U/L (38-126); Anion Gap 4 mmol/L (4-12); Aspartate Amino Transferase 46 U/L (14-36); Bilirubin,Total 0.9 mg/dL (0.2-1.3); Blood Urea Nitrogen 17 mg/dL (7-17); Calcium 8.9 mg/dL (8.4-10.2); Carbon Dioxide 25 mmol/L (22-30); Chloride 109 mmol/L (98-107); Cholesterol 194 mg/dL (0-200); Estimated Glomerular Filt Rate 45; Glucose 87 mg/dL (65-110); HDL Direct 53 mg/dL; Potassium 4.2 mmol/L (3.4-5.0); Sodium 138 mmol/L (137-145); Triglycerides 166 mg/dL (<150)
[2024-06-27 14:10] LABS: Basophils Percent Auto 0.5 % (0.2-1.2); Eosinophils Absolute Auto 0.1 K/mm3 (0-0.3); Eosinophils Percent Auto 3.2 % (0-4.4); Hematocrit 42.9 % (37.0-47.0); Hemoglobin 13.4 g/dL (12.0-15.0); Immature Granulocyte Absolute 0.01 K/mm3 (0.00-0.031); Immature Granulocyte Percent A 0.2 % (0-0.5); Lymphocytes Absolute Auto 1.55 K/mm3 (0.9-3.2); Lymphocytes Percent Auto 37.8 % (18.3-44.2); Mean Corpuscular HGB Conc 31.2 g/dl (32-36); Monocytes Absolute Auto 0.4 K/mm3 (0.1-0.6); Monocytes Percent Auto 8.5 % (2.6-8.5); Neutrophils Percent Auto 49.8 % (45.5-73.1); Platelet Count Result 246 k/mm3 (150-375); Red Blood Count 4.47 M/mm3 (4.2-5.4); Red Cell Distribution Width 13.1 % (11.5-14.5); White Blood Count 4.1 K/mm3 (4.5-10.0)
[2024-06-27 14:20] LABS: LDL Cholesterol Direct 91 mg/dL
[2024-06-27 14:25] LABS: Free T4 Free Thyroxine 1.53 ng/dL (0.78-2.19); Vitamin D 25 Hydroxy 28.7 ng/mL
[2024-06-27 14:37] LABS: Thyroid Stimulating Hormone 0.331 uIU/mL (0.465-4.680)
[2024-07-02 13:03] LABS: Vitamin D 1,25 (OH)2 Total 46 pg/mL (18-72); Vitamin D2 1,25 (OH)2 <8 pg/mL; Vitamin D3 1,25 (OH)2 46 pg/mL
== END 2024-06-27 08:18 | disposition home or self-care (01) ==
PROVIDERS: Nurse Practitioner Family; PCP Nurse Practitioner Family; Visit Provider Nurse Practitioner
DX: E03.9 Hypothyroidism, unspecified (principal); E55.9 Vitamin D deficiency, unspecified; E78.5 Hyperlipidemia, unspecified
CPT/HCPCS: 36415; 80053; 80061; 82306; 82652; 84439; 84443; 85025

== ENCOUNTER 2024-08-03 01:59 | Day surgery (SDC) | payer MEDICARE, SELFPAY ==
--- NOTE | 2024-07-18 11:10 | PC.NURSE ---
Report to the Outpatient Waiting Room, entrance under the green pavilion located off [facility], at time 9 AM on date _08/03/24 . Planned Procedure Time: __11 AM .? Time changes happen often and if your time is changed the preop area will call you the afternoon before. - You and your visitor will be asked to self-screen and do not enter if you have any COVID symptoms. Please call surgeon if you need to reschedule. - A mask is optional within the hospital at this time. Patients may have clear liquids (water, carbonated beverages, clear teas, apple juice) until 3 hours prior to surgery( 8 AM) with a maximum of 20 ounces. - No food from midnight until time of surgery and no smoking. This includes no chewing gum, candy or mints. - Take only the following medications with a SIP of water on the morning of surgery: LEVOTHYROXINE DO NOT STOP ANY OF YOUR OTHER PRESCRIPTION MEDICATIONS PRIOR TO SURGERY EXCEPT THE FOLLOWING Medications to discontinue per physician ____IBUPROFEN PER DR MORA Please no make-up, nail iranian, hairspray, perfume, deodorant, or body powder the day of surgery.? No jewelry (including any body piercings) or valuables the day of surgery, leave them at home.? Please take a shower or bath the night before, or the morning of, surgery with an antibacterial soap.? Wear comfortable, loose fitting clothing.? Children are encouraged to wear pajamas. - Jewelry must be removed prior to entering the operating room.? Rings and piercings that are not removed may be cut off. - The hospital will not accept responsibility for valuables.? - Please leave all valuables, including medications, at home the day of surgery. If you are going home after surgery, a licensed deliver driver must drive you home.? - NO public transportation without another adult if you receive anesthesia. - We recommend that an adult stay with you for 24 hours following discharge. - We also recommend that you do not drive, make important decision, drink alcoholic beverages, or take any drugs that were not prescribed by your health care provider for at least 24 hours after your discharge time. Follow any additional instructions given to you from your surgeon. Telephone instructions given to ___PATIENT and asked if any additional questions and then verbalized understanding. Patient advised to call surgeon office or pre surgery nurse liaison [phone] if any additional questions.
[2024-07-18 11:23] VITALS: BMI 33.7
--- NOTE | 2024-08-02 12:26 | P.PNAN_ITS ---
Anes - Initial Pre Proc Eval Procedure: Operation Date: 08/03/24 11:00 Proposed Procedures p Right Knee Arthroscopy, Proceed As Indicated - Zackery Estrella MD Date/Time: 08/02/24 12:26 Surgeon: Zackery Estrella MD Pre Op Diagnosis: right knee medial meniscus tear Patient Data Age: 68 Gender: F Height: 1.52 m Weight: 78.5 kg Allergies Allergy/AdvReac Type Severity Reaction Status Date / Time No Known Allergies Allergy Verified 08/03/24 10:53 Home Medications ?Medication ?Instructions ?Recorded ?Confirmed ?Type cetirizine 10 mg tablet (Zyrtec) 10 mg PO DAILY PRN allergy 06/20/24 07/18/24 Rx symptoms #30 tabs fluticasone propionate 50 1 spray intranasal DAILY #16 grams 06/20/24 08/03/24 Rx mcg/actuation nasal spray,suspension (Flonase Allergy Relief) guaifenesin 600 mg tablet, 600 mg PO BID #30 tabs 06/20/24 08/03/24 Rx extended release 12 hr (Mucinex) levothyroxine 88 mcg tablet 88 mcg PO DAILY #90 tabs 06/28/24 08/03/24 Rx chlorhexidine gluconate 4 % 1 applic topical ONCE #237 mL 07/18/24 07/18/24 Rx topical liquid (Hibiclens) ibuprofen 400 mg tablet (IBU) 400 mg PO PRN 07/18/24 07/18/24 History Patient hx anesthesia problems: none Family hx anesthesia problems: none Results Review: All pre-operative results and documents have been reviewed as part of the pre- operative evaluation. [facility] [place] Past Medical History Medical History (Updated 07/18/24 @ 10:38 by AZUL Faith) Nausea after anesthesia History of kidney stones (~01/28/12) Vitamin D deficiency Hyperlipidemia, unspecified Hypothyroidism, unspecified Surgical History Surgical History History of cataract surgery x2 History of bunionectomy x2 History of carpal tunnel surgery Hx of thyroidectomy (~1999) Hx of foot surgery Family History Family History Grandparent Acute myocardial infarction Father Hypertension Unknown High cholesterol Arthritis Social History Social History Social History: Gin is , she and her recently moved back to [place] from [place], [place]. She is helping with the care of her elderly mother. 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 Smoking status: Never smoker Alcohol intake: current Alcohol use details: socially Substance use: never Substance use type: does not use Lack of Transportation: No Lack of Food: Never True Current Housing: I Have Housing Concerned About Future Housing: No Difficulty Paying Gas/Electric Bills: No Difficulty Paying for Meds: No Currently Unemployed: No Education: Associate Degree Difficulty w/ Childcare or Family Care: No Living arrangements: with family Additional living arrangements comments: Occupation/Education: retired Gender identity (if verbalized by the patient): Female Sexual Orientation (if Verbalized by the Patient): Straight or Heterosexual Spiritual care concerns: No Agree to blood products: Yes Anes - Eval Final PreProcedure Day of Procedure 08/02/24 12:26 Patient weight: normal Heart: regular rate and rhythm Lungs: clear to auscultation Airway: Mallampati scale class II Neurological: alert and oriented Last oral intake: >/= 8 hours ASA classification: III Emergent: no Anesthetic plan: proceed Anesthesia type and monitoring: general LMA and standard monitoring Results Review: All pre-operative results and documents have been reviewed as part of the pre- operative evaluation. Informed Consent: The patient's anesthetic plan and its attendant risks and benefits were discussed with the patient/family/POA. Questions were solicited and answers provided to the satisfaction of the patient/family/POA.
[2024-08-03] VITALS (12 sets, daily range): BP systolic 107–162; BP diastolic 70–100; PULSE 63–73; RESP 14–20; TEMP 36.4–36.6; O2SAT 93–100; BMI 28.5
--- NOTE | 2024-08-03 07:07 | WPDHPUPDATE1 ---
History and Physical Update Update Date/Time: 08/03/24 07:07 History and Physical has been reviewed, including an updated exam of the patient. There are NO changes in the patient's condition. Risks, benefits, and alternatives have been discussed and questions answered. Patient agrees to proceed with procedure.
[2024-08-03] MEDS: LACTATED RINGERS 1,000 ML 30 ML IV CONT ×2 (09:55→13:53)
[2024-08-03] MEDS: ACETAMINOPHEN 500 MG TABLET 1000 MG PO (10:19)
[2024-08-03] MEDS: CELECOXIB 200 MG CAPSULE PO (10:19)
--- NOTE | 2024-08-03 10:45 | SUR.PREOP ---
1045- Patient declined crutch training today. Patient verbalized understanding of crutch use after instruction from PT prior to hospital visit.
[2024-08-03] MEDS: ceFAZolin 2 GM/D5W 50 ML 2 GM/50 ML BAG IVPB (11:32)
[2024-08-03] MEDS: BUPivacaine HCL 0.5% 10 ML AMP 30 ML INFILTRATE (12:08)
--- NOTE | 2024-08-03 13:17 | W.PM.PROC2 ---
Procedure Note - Detailed Date of Procedure 08/03/24 Pre-op Diagnosis right knee medial meniscus tear, lateral meniscus tear Post-op Diagnosis Same Procedure Performed RIGHT KNEE SCOPE Surgeon Zackery Estrella MD Anesthesia General Description of Procedure PATIENT WAS TAKEN TO THE OR. THE RIGHT LEG WAS PREPPED AND DRAPED STERILE. TROCARS WERE PLACED IN THE USUAL FASHION. CAMERA WAS INTRODUCED. 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 THERE WAS A LOT OF SYNOVITIS IN ALL COMPARTMENTS. THE MEDIAL COMPARTMENT SHOWED CHONDROMALACIA TO THE MEDIAL FEMORAL CONDYLE. THERE WAS A NEAR FULL THICKNESS CARTILAGE DEFECT TO THE MEDIAL PLATEAU. A SHAVER WAS USED TO PREFORM A CHONDROPLASTY. THERE WAS A COMPLEX MEDIAL MENISCUS TEAR. THE TEAR WAS RESECTED WITH A BITER AND A SHAVER DOWN TO A SMOOTH BASE. THE ACL WAS INTACT. THE LATERAL MENISCUS HAD A DEGENERATIVE TEAR TO THE MAIN ROOT. A PARTIAL MENISCECTOMY WAS PREFORMED. THE LATERAL COMPARTMENT HAD MINIMAL CHONDROMALACIA. CHONDROPLASTY WAS PREFORMED. A SYNOVECTOMY WAS PREFORMED WELL. THE PATELLO FEMORAL JOINT UNDERWENT CHONDROPLASTY. THERE WAS GRADE 3 CHONDROMALACIA IN PART OF THE TROCHLEA AND PART OF THE PATELLA. SYNOVECTOMY WAS PREFORMED IN THE SUPERIOR MEDIAL COMPARTMENT. THE WOUNDS WERE APPROXIMATED WITH 4.0 NYLON. STERILE DRESSING WAS APPLIED. PATIENT WAS EXTUBATED. Estimated Blood Loss 5 Complications No immediate complications Condition Stable Disposition PACU
[2024-08-03] MEDS: fentaNYL CITRATE INJ (*CRX) 100 MCG/2 ML VIAL 25 MCG IV PUSH (13:41)
[2024-08-03] MEDS: ONDANSETRON INJ 4 MG/2 ML VIAL IV PUSH (13:47)
--- NOTE | 2024-08-03 14:50 | SUR.PHASEII ---
1443- MD Serrato contacted - Pt still nauseated after ordered Zofran. New orders for RN to give 12.5mg Benadryl IVP and pepsid 20mg IVP as needed.
[2024-08-03] MEDS: diphenhydrAMINE HCl INJ 50 MG/ML VIAL 12.5 MG IV PUSH (14:53)
== END 2024-08-03 15:48 | disposition home or self-care (01) ==
PROVIDERS: PCP Nurse Practitioner Family; Visit Provider Orthopaedic Surgery
PROC: (CPT 29870; principal; 2024-08-03 11:00)
DX: S83.231A Complex tear of medial meniscus, current injury, right knee, initial encounter (principal); M94.261 Chondromalacia, right knee; M65.861 Other synovitis and tenosynovitis, right lower leg; G89.29 Other chronic pain; E55.9 Vitamin D deficiency, unspecified; E78.5 Hyperlipidemia, unspecified; E03.9 Hypothyroidism, unspecified; X58.XXXA Exposure to other specified factors, initial encounter; Z79.1 Long term (current) use of non-steroidal anti-inflammatories (NSAID); Z98.890 Other specified postprocedural states; Z87.442 Personal history of urinary calculi; Z82.49 Family history of ischemic heart disease and other diseases of the circulatory system
CPT/HCPCS: 29881; 29876; A9270; J0690; J1100; J1200; J1596; J2003; J2250; J2371; J2405; J2704; J3010; J7120

== ENCOUNTER 2024-10-31 10:15 | Outpatient (RCR) | payer MEDICARE, SELFPAY ==
--- NOTE | 2024-10-04 10:30 | OPREHPOC ---
Outpatient Therapy Plan of Care This is a Multidisciplinary Plan of Care that may contain components documented by all disciplines (PT, OT, and ST.) PT Problem 1 PT Problem #1 Knowledge Deficit PT Goal 1 Goal / Goal Update [place] with HEP Target Visit 4 PT Goal 2 Goal / Goal Update Report no pain greater than 2/10 for 2 consecutive weeks Target Visit 8 PT Problem 2 PT Problem #2 Impaired Range of Motion PT Goal 1 Goal / Goal Update 1. Achieve terminal knee extension bilaterally 2. Improve R ankle dorsiflexion to 10+ degrees to help achieve terminal stance Target Visit 8 PT Problem 3 PT Problem #3 Impaired Strength PT Goal 1 Goal / Goal Update Improve R quad strength to 5/5 to improve patellar stability with ADLs Target Visit 8 PT Problem 4 PT Problem #4 Impaired Gait PT Goal 1 Goal / Goal Update Ambulate with even stride length bilaterally achieving terminal stance
--- NOTE | 2024-10-04 10:31 | PTOPEVAL1 ---
Assessment and note entered by Blair Orantes, PT Evaluation Information Assessment Status Evaluation Diagnosis Unilateral OA of right knee ICD-10 Condition Codes (PT) Pain in right knee M25.561 Onset 08/03/2024 Subjective Information Reports that she has noted some increased pain with recovery process. She has still been taking pain medication and about 2 weeks ago she encountered stabbing pain in her knee with a flare up. Pain is anterior medial on the knee. She is having trouble with bending and straightening of the knee affecting her walking. Some pain is present at night as well. Her left knee is giving her a lot of trouble as well and she is awaiting potential surgery on that. Reported Pain Level Pain Score 1: Self Report Assessment PT Clinical Summary Patient presents with soft tissue irritation, lacking terminal extension, and gait deficits affecting mobility and knee pain. Patient will benefit form skilled therapy to address these deficits to restore terminal knee motion and quad control for improved ADL performance. Plan of Care Interventions Electrical Stimulation,Gait Training,Hot Pack/Cold Pack,Manual Therapy,Neuro Re-education, Therapeutic Activities,Therapeutic Exercise PT Services Indicated Yes Treatment Frequency and 2x/week for 8 visits Duration These treatments will address the objective and functional deficits as defined above. The patient will be advanced safely and appropriately in order for the patient to progress towards his/her prior level of function. Additional exercises will be introduced and as well as a comprehensive home exercise program upon discharge, if needed, ?to ensure carryover of functional gains achieved in the clinic. This treatment plan has been reviewed and agreement upon by the patient.
--- NOTE | 2024-10-14 09:13 | PCPTNOTE ---
Patient was canceled 10/13/24 due to therapist out with illness.
--- NOTE | 2024-10-31 11:22 | OPREHPOC ---
Outpatient Therapy Plan of Care This is a Multidisciplinary Plan of Care that may contain components documented by all disciplines (PT, OT, and ST.) PT Problem 1 PT Problem #1 Knowledge Deficit PT Goal 1 Goal / Goal Update [place] with HEP Target Visit 4 Progress Met PT Goal 2 Goal / Goal Update Report no pain greater than 2/10 for 2 consecutive weeks 10/31/24: 1. met in L knee Target Visit 8 PT Problem 2 PT Problem #2 Impaired Range of Motion PT Goal 1 Goal / Goal Update 1. Achieve terminal knee extension bilaterally 2. Improve R ankle dorsiflexion to 10+ degrees to help achieve terminal stance 10/31/24: 1-2. met Target Visit 8 Progress Met PT Problem 3 PT Problem #3 Impaired Strength PT Goal 1 Goal / Goal Update Improve R quad strength to 5/5 to improve patellar stability with ADLs Target Visit 8 PT Problem 4 PT Problem #4 Impaired Gait PT Goal 1 Goal / Goal Update Ambulate with even stride length bilaterally achieving terminal stance 10/31/24: 1. met
--- NOTE | 2024-10-31 11:23 | PTOPDC ---
Assessment and note entered by Renate Valle, PT, DPT Evaluation Information Assessment Status Discharge Diagnosis Unilateral OA of right knee ICD-10 Condition Codes (PT) Pain in right knee M25.561 Onset 08/03/2024 Subjective Information Pt states her L knee is more bothersome for her at this point. Pt states she has been doing a lot of walking for exercise and feel like her gait pattern has improved. Reported Pain Level Pain Score 3,1: Self Report Assessment PT Clinical Summary Patient presents today following 8 visits of skilled therapy following a R meniscus debridement . Pt has progressed well in her ROM, strength, and functional mobility. She has more or progressed well towards all of her therapy goals and no longer requires skilled services. She will be discharged at this time.
== END 2024-11-21 13:48 | disposition home or self-care (01) ==
LOC: ANHGOSHPT 10:15
PROVIDERS: PCP Nurse Practitioner Family; Visit Provider Orthopaedic Surgery
DX: M25.561 Pain in right knee (principal); M17.11 Unilateral primary osteoarthritis, right knee; Z98.890 Other specified postprocedural states
CPT/HCPCS: 97014; 97016; 97110; 97140; 97161; 97530; G0283

== ENCOUNTER 2024-12-29 08:39 | Outpatient (CLI) | payer MEDICARE, SELFPAY ==
--- OUTSIDE RECORDS SUMMARY | 2024-12-29 08:50 | XMS_ITS | Continuity of Care Document ---
Author Organization [facility] In Address [address] [place] [address] Phone Care Team Providers Care Endocrinology Teacher Name Role Phone Raheem Paige MD Unavailable Unavailable Allergies, Adverse Reactions, Alerts Substance Reaction Status Criticality No Known Allergies Active No Inform ation Medications Medication Instructions Dosage Effective Dates (start - stop) Status Comments betamethasone, augmented 0.05 % lotion compounded in solution twice a day to each nostril - Active mupirocin 2 % topical ointment compunded in a solution twice a day to each nostril - Active apple cider vinegar 500 mg tablet take 1 by Oral route every day 1 - Active multivitamin tablet take 1 tablet by oral route every day with food - Active Eye Allergy Relief (naphazoline-pheni ramine) 0.025 %-0.3 % drops take 1 Drop by Ophthalmic route every day as needed 1 Drop - Active garlic 500 mg tablet take 1 by Oral route 2 times every day - Active Benadryl Allergy 25 mg tablet take 2 tablet by oral route every 4 - 6 hours as needed 50 MG - Active ibuprofen 200 mg tablet take 2 Tablet by ORAL route every day as needed with food 400 MG - Active echinacea 400 mg capsule one a day - Active Vitamin C 500 mg tablet take 1 Tablet by Oral route every day 1 Tablet - Active Fish Oil 1,000 mg (120 mg-180 mg) capsule take 1 by oral route every day 1 - Active cranberry concentrate-ascorb ic acid 4,200 mg-20 mg capsule take 1 by oral route every day 1 - Active Acidophilus capsule Take 1 by Oral route every day 1 - Active Calcium 600 + D(3) 600 mg (1,500 mg)-400 unit tablet take 1 by Oral route every day 1 - Active Cinnamon 500 mg capsule takes 1 Capsule by Oral route 2 times every day 1 Capsule - Active flaxseed oil-omega 3,6,9-fatty acids 1,200 mg-540 mg-132 mg capsule one a day - Active Vitamin D3 1,000 unit tablet take 1 by Oral route every day 1 - Active Synthroid 100 mcg tablet take 1 tablet by oral route every day 100 MCG - Active Pred Forte 1 % eye drops,suspension instill 1 drop by Ophthalmic route every 4 days into right eye 1 drop - No Longer Active start 3 days prior to surgery and continue after surgery /15 ml bottle Procedures Procedure Date Post-op Refraction POSTOP FOLLOW-UP VISIT Post-op Refraction POSTOP FOLLOW-UP VISIT POSTOP FOLLOW-UP VISIT POSTOP FOLLOW-UP VISIT POSTOP FOLLOW-UP VISIT CATARACT SURGERY WITH INTRAOCULAR LENS M UNLISTED PROCEDURE, ANTERIOR SEGMENT; TO CHRISTI IOL Post-op Refraction POSTOP FOLLOW-UP VISIT OPHTHALMIC BIOMETRY WITH INTRAOCULAR MANUEL S POWER CALCULATION Post-op Refraction POSTOP FOLLOW-UP VISIT POSTOP FOLLOW-UP VISIT POSTOP FOLLOW-UP VISIT POSTOP FOLLOW-UP VISIT CATARACT SURGERY WITH INTRAOCULAR LENS A UNLISTED PROCEDURE, ANTERIOR SEGMENT; TO CHRISTI IOL OPHTHALMIC BIOMETRY WITH INTRAOCULAR MANUEL S POWER CALCULATION PAPERWORK FOR SURGERY OFFICE/OUTPATIENT VISIT, NEW Advance Directives Directive Yes / No Effective Date File Name No Information Encounters Encounter Description Practice Location Reason(s) For Visit Diagnoses Date Provider Providers Copied on Encounter [facility], [address] [place], [address], [place] tel:[phone] [facility] F/u exam, postop Refraction Cat (chief complaint) Presence of intraocular lens Dec- 7 Royal Maciel. [address] [place] [address], [facility], . tel: [phone] [facility], [address] [place] [address], [facility], tel:[phone] [facility] Post Op Cat (chief complaint) Presence of intraocular lens November- 7 Royal Maciel. [address] [place] [address], [facility], [place]. tel: [phone] [facility], [address] [place] [address], [facility], tel:[phone] [facility] F/u exam, postop cataract (chief complaint) Presence of intraocular lens 7 Royal Maciel. [address] [place] [address], [facility], . tel: [phone] [facility], [address] [place] [address], [facility], tel:[phone] [facility] No Information Royal Maciel. [address] [place] [address], [facility], . tel: [phone] [facility], [address] [place] [address], [facility], tel:[phone] [facility] F/u exam, postop cat (chief complaint)C ataract (chief complaint) Presence of intraocular lensCombined forms of age-related cataract, right eye May-0 9 7 Royal Maciel. [address] [place] [address], [facility], [place]. tel: [phone] [facility], [address] [place] [address], [facility], [place] tel:[phone] [facility] F/u exam, postop (chief complaint)C ataract (chief complaint) Presence of intraocular lensCombined forms of age-related cataract, right eye Apr- 3 7 Royal Maciel. [address] [place] [address], [facility], . tel: [phone] [facility], [address] [place] [address], [facility], tel:[phone] [facility] F/u exam, postop Cataract (chief complaint) Presence of intraocular lens Apr-0 6 7 Royal Maciel. [address] [place] [address], [facility], . tel: [phone] [facility], [address] [place] [address], [facility], tel:[phone] [facility] No Information Apr-0 7 Royal Maciel. [address] [place] [address], [facility], . tel: [phone] [facility], [address] [place] [address], [facility], tel:[phone] [facility] Combined forms of age-related cataract, bilateral Mar-2 7 Royal Maciel. [address] [place] [address], [facility], . tel: [phone] [facility], [address] [place] [address], [facility], tel:[phone] [facility] No Information Mar-0 7 Royal Maciel. [address] [place] [address], [facility], . tel: [phone] OFFICE/OUTPAT IENT VISIT, NEW [facility], [address] [place] [address], [facility], tel:[phone] [facility] Cataract (chief complaint) Combined forms of age-related cataract, bilateralMyogenic ptosis of bilateral eyelidsDry eye syndrome of bilateral lacrimal glands Feb-2 7 Royal Maciel. [address] [place] [address], [facility], [place]. tel: [phone] Family History Family Member Type Diagnosis Age At Onset Mother Problem (finding) glaucoma Father Problem (finding) hypertension Mother Problem (finding) degenerative disorder o f macula Immunizations Vaccine Date Status Comments Flu (split) (3 yrs or older) administered Source: Other Provider Payers Payer name Insurance type Covered libertarian ID Kana oquendo(german Martin [facility] Traditional BL [id number] Social History Type Description Quantity Date Captured Comments Alcohol Use Details Unknown Caffeine Use Details Unknown Tobacco Use Status No Information Smoking Status No Information Sex Female Chief Complaint And Reason For Visit From encounter dated '01/19/2017 09:00'. F/u exam, postop Refraction Cat (chief complaint). Description: The 61 year old female presents forevaluation of F/u exam, postop Refraction Cat in the right eye. It started about 6 week(s) ago. Pt describes dry eyes, but improved vision, no complaints. Reason For Referral Reason For Referral No Information History Of Present Illness Encounter Date Complaint History Of Prese nt Illness F/u exam, postop Refraction Cat The 61 year old female presents for evaluation of F/u exam, postop Refraction Cat in the right eye. It started about 6 week(s) ago. Pt describes dry eyes, but improved vision, no complaints. Post Op Cat The 61 year old female presents for evaluation of Post Op Cat in the right eye. It started about 1 week(s) ago. The condition is described as no complaints. In addition, the condition is associated with using drops faithfully. Vision is improved F/u exam, postop cataract The 61 year old female presents for evaluation of F/u exam, postop cataract in the right eye. It started about 1 day(s) ago. The condition is described as vision is improved. F/u exam, postop cat The 61 year old female presents for evaluation of F/u exam, postop cat in the left eye. It started about 5 week(s) ago. The condition is described as no complaints. In addition, the condition is associated with using drops faithfully. Cataract The patient is p resent for evaluation of Cataract in the right eye. It started about some year(s) ago. It occurs with blur. The onset was progressive. It affects both near and far vision. The symptom is worsening. The condition is moderate. The condition is described as blurring. In addition, the condition is associated with difficulty driving at night. Associated symptoms include: blur with glare, blur with driving and new glasses not helping. F/u exam, postop The 61 year old female presents for evaluation of F/u exam, postop in the left eye. It started about 1 week(s) ago. IOL OS Cataract The patient is p resent for evaluation of Cataract in the right eye. It started about some year(s) ago. The onset was gradual. It affects the vision significantly. The condition is worsening. The condition is described as worse with bright light. In addition, the condition is associated with difficulty with activities. Associated symptoms include: blur with driving, blur with reading, blur with glare and difficulty with dim light. F/u exam, postop Cataract The 61 year old female presents for evaluation of F/u exam, postop Cataract in the left eye. The condition is described as no complaints. Vision is improved Cataract The 60 year old female presents for evaluation of Cataract in the right eye and left eye. It started about some year(s) ago. The onset was gradual. It affects OU. The symptom is of gradual onset. The condition is mild. The condition is described as worse with night vision. Associated symptoms include: blur with driving, blur with reading, blur with TV and blur with glare. Referred by Dr. Sexton new glasses not helping. Wears RGP lenses monovision. Functional Status Date Functional Assessmen t No Information Instructions Date Instruction Additional Infor bruna Impression/Plan - Fo llow up with Dr. Sexton on 02/06/17 Related to Presence of intraocular lens Follow up - Return i n PRN with Raheem Paige M.D. Impression/Plan - [A 4] Signs and symptoms of long-term postoperative complications were discussed with the patient. Drop instructions given. Patient to continue Prednisolone twice a day for 1 week and then stop. Artificial tears to be used as needed. Related to Presence of intraocular lens keep appt Related to Prese nce of intraocular lens Follow up - keep appt Related to Presence of intraocular lens Impression/Plan - [* 4] Postoperative instructions were reviewed verbally, and written instructions were given to the patient. Patient to follow instruction sheet given at surgery. Patient to have a post-op check and refraction in 3-4 weeks. Post op instructions given and understood. Patient to stop the Polytrim now, continue using the Bromfenac once a day for a week then stop and Pred Forte 4 times a day into the right eye. Patient instructed to continue using the preservative free artificial tears. Related to Presence of intraocular lens 1 week postop and 1 month postop refraction Related to Presence of intraocular lens Impression/Plan - [* 1] Postoperative instructions were reviewed verbally, and written instructions were given to the patient. Patient to follow instruction sheet given at surgery. Patient to have a post-op check in 1 week. Patient instructed to wear shield when sleeping, not to rub or touch eye and to avoid getting anything in operative eye. Post op instructions given and understood. Related to Presence of intraocular lens Follow up - 1 week p ostop and 1 month postop refraction Related to Presence of intraocular lens Return in 1 week margaret Paige M.D. for CEIOL OD Related to Combined forms of age-related cataract, right eye Impression/Plan - [* 7] Signs and symptoms of long-term postoperative complications were discussed with the patient. Drop instructions given. Patient to follow instruction sheet given at surgery. Related to Presence of intraocular lens Impression/Plan - [C 6]The pt's vision is impaired by a cataract, and the vision cannot be significantly improved with new glasses. Cataract removal is expected to improve visual function. The cataract is interfering with activities of daily life. The pros and cons of various implant options and issue of astigmatism were discussed. The patient understands that glasses will be needed at least part of the time no matter what option is selected and that results may differ from what was planned. The risks, benefits, and alternatives of cataract surgery were discussed with the patient noting that all operations and procedures have some risk and can result in complications, injury, and/or even , including but not limited to bleeding, infection, injury to the eye, glare symptoms, double vision, retinal detachment, retained cataract, dislocation of the implant, droopy eyelids, swelling that impairs vision & partial or total vision loss that is permanent. All questions were answered. Pt elects to proceed. Related to Combined forms of age-related cataract, right eye Follow up - Return i n 1 week with Raheem Paige M.D. for CEIOL OD Related to Combined forms of age-related cataract, right eye Return in 3-4 weeks with Raheem Paige M.D. for post op exam. Related to Combined forms of age-related cataract, right eye Impression/Plan - [G G7] After hearing risks and alternatives, patient elects to proceed with surgery.IOL OD 12-10-16 Related to Combined forms of age-related cataract, right eye Follow up - Return i n 3-4 weeks with Raheem Paige M.D. for post op exam. Related to Combined forms of age-related cataract, right eye Impression/Plan - [C 6]The pt's vision is impaired by a cataract, and the vision cannot be significantly improved with new glasses. Cataract removal is expected to improve visual function. The cataract is interfering with activities of daily life. The pros and cons of various implant options and issue of astigmatism were discussed. The patient understands that glasses will be needed at least part of the time no matter what option is selected and that results may differ from what was planned. The risks, benefits, and alternatives of cataract surgery were discussed with the patient noting that all operations and procedures have some risk and can result in complications, injury, and/or even , including but not limited to bleeding, infection, injury to the eye, glare symptoms, double vision, retinal detachment, retained cataract, dislocation of the implant, droopy eyelids, swelling that impairs vision & partial or total vision loss that is permanent. All questions were answered. Pt elects to proceed. [GG4] The pros and cons of various implant options including distance, near, multifocal, and astigmatic corrections with regards to their own lifestyle needs and anticipated tolerance for potential abnormal visual phenomenon were discussed. The patient understands that glasses will be needed at least part of the time no matter what option is selected and that results may differ from what was predicted or planned. The patient elects to proceed with astigmatic correction at the time of cataract surgery if possible. The patient understands that total correction is unlikely and that it does not necessarily last a lifetime, but hopefully significant improvement can be made. They also understand that we may elect not to proceed with astigmatic correction if it does not appear to be an ideal option before or during the surgery. Related to Combined forms of age-related cataract, right eye Return in 1 week wit h Raheem Paige M.D. for post op exam. Return in 1 month with Raheem Paige M.D. for , Post Op Refraction. Related to Presence of intraocular lens Impression/Plan - [* 1] Postoperative instructions were reviewed verbally, and written instructions were given to the patient. Patient to follow instruction sheet given at surgery. Patient to have a post-op check in 1 week. Patient instructed to wear shield when sleeping, not to rub or touch eye and to avoid getting anything in operative eye. Post op instructions given and understood. Related to Presence of intraocular lens Follow up - Return i n 1 week with Raheem Paige M.D. for post op exam. Return in 1 month with Raheem Paige M.D. for , Post Op Refraction. Related to Presence of intraocular lens Impression/Plan - [B ] Discussed findings, diagnoses, treatment options, and follow up. 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 Related to Combined forms of age-related cataract, bilateral Impression/Plan - [C 6]The pt's vision is impaired by a cataract, and the vision cannot be significantly improved with new glasses. Cataract removal is expected to improve visual function. The cataract is interfering with activities of daily life. The pros and cons of various implant options and issue of astigmatism were discussed. The patient understands that glasses will be needed at least part of the time no matter what option is selected and that results may differ from what was planned. The risks, benefits, and alternatives of cataract surgery were discussed with the patient noting that all operations and procedures have some risk and can result in complications, injury, and/or even , including but not limited to bleeding, infection, injury to the eye, glare symptoms, double vision, retinal detachment, retained cataract, dislocation of the implant, droopy eyelids, swelling that impairs vision & partial or total vision loss that is permanent. All questions were answered. Pt elects to proceed. [F5] The higher risk of complications relates to high myopia or long axial length, in particular the higher risk of retinal tears and detachment as well as the higher risk of complications from local anesthesia when its use is indicated were discussed. [GG1] The pros and cons of various implant options including distance, near, multifocal, and astigmatic corrections with regards to their own lifestyle needs and anticipated tolerance for potential abnormal visual phenomenon were discussed. The patient understands that glasses will be needed at least part of the time no matter what option is selected and that results may differ from what was predicted or planned. The patient elects to aim for a distance visual refraction outcome after surgery, understanding that this is not a guaranteed result. Related to Combined forms of age-related cataract, bilateral Follow up - Return i n 1-2 weeks with Raheem Paige M.D. for A-Scan / IOL Master. Related to Combined forms of age-related cataract, bilateral Impression/Plan - [G G4] The pros and cons of various implant options including distance, near, multifocal, and astigmatic corrections with regards to their own lifestyle needs and anticipated tolerance for potential abnormal visual phenomenon were discussed. The patient understands that glasses will be needed at least part of the time no matter what option is selected and that results may differ from what was predicted or planned. The patient elects to proceed with astigmatic correction at the time of cataract surgery if possible. The patient understands that total correction is unlikely and that it does not necessarily last a lifetime, but hopefully significant improvement can be made. They also understand that we may elect not to proceed with astigmatic correction if it does not appear to be an ideal option before or during the surgery. Related to Combined forms of age-related cataract, bilateral Assessments Type Assessment Date assessment Presence of intraocular lens Dec impression Presence of intraocular lens: Z9 6.1 OD Patient Care Teams Name Effective Dates (start - stop) Status Members No Information
--- OUTSIDE RECORDS SUMMARY | 2024-12-29 08:50 | XMS_ITS | Continuity of Care Document ---
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 Role Phone [facility] Unavailable Unava ilable Procedures Procedure Date FACILITY/CATARACT SURG W/IOL 1 STAGE November ASTIGMATISM CORRECTING INTRAOCULAR LENS FACILITY/CATARACT SURG W/IOL 1 STAGE Oct ASTIGMATISM CORRECTING INTRAOCULAR LENS Advance Directives Directive Yes / No Effective Date File Name No Information Encounters Encounter Description Practice Location Reason(s) For Visit Diagnoses Date Provider Providers Copied on Encounter [facility], [address] [place] [address], [id number], tel:[phone] [facility] No Information [facility]. [address] [place] [address], [id number], . tel:[phone] Referring Provider: Raheem Ross, [address] [place] [address], [id number]. tel:[phone] [facility], [address] [place] [address], [id number], tel:[phone] [facility] No Information [facility]. [address] [place] [address], [id number], . tel:[phone] Referring Provider: Raheem Ross, [address] [place] [address], [id number]. tel:[phone] Family History Family Member Type Diagnosis Age At Onset No Information Payers Payer name Insurance type Covered democrat ID Kana oquendo(s) Mario [facility] Traditional [id number] Social History Type Description Quantity Date Captured Comments Sex Female Smoking Status No Information Chief Complaint And Reason For Visit No Information Reason For Referral Reason For Referral No Information History Of Present Illness Encounter Date Complaint History Of Prese nt Illness No Information Functional Status Date Functional Assessmen t No Information Instructions Date Instruction Additional Infor mation No Information Assessments Type Assessment Date No Information Patient Care Teams Name Effective Dates (start - stop) Status Members No Information
[2024-12-29 13:40] LABS: Alanine Aminotransferase 19 U/L (6-35); Albumin Level 4.4 g/dL (3.5-5.1); Alkaline Phosphatase 80 U/L (38-126); Anion Gap 7 mmol/L (4-12); Aspartate Amino Transferase 39 U/L (14-36); Bilirubin,Total 0.8 mg/dL (0.2-1.3); Blood Urea Nitrogen 17 mg/dL (7-17); Calcium 9.5 mg/dL (8.4-10.2); Carbon Dioxide 29 mmol/L (22-30); Chloride 106 mmol/L (98-107); Cholesterol 229 mg/dL (0-200); Estimated Glomerular Filt Rate > 60; Glucose 89 mg/dL (65-110); HDL Direct 51 mg/dL; Sodium 142 mmol/L (137-145); Total Protein 7.3 g/dL (6.3-8.2); Triglycerides 211 mg/dL (<150)
[2024-12-29 13:46] LABS: LDL Cholesterol Direct 113 mg/dL
[2024-12-29 14:30] LABS: Hepatitis C Virus Antibody Negative (Negative)
[2024-12-29 14:31] LABS: Vitamin D 25 Hydroxy 28.4 ng/mL
== END 2024-12-29 08:40 | disposition home or self-care (01) ==
PROVIDERS: PCP Nurse Practitioner Family; Visit Provider Nurse Practitioner
DX: M85.88 Other specified disorders of bone density and structure, other site (principal); E78.5 Hyperlipidemia, unspecified; E55.9 Vitamin D deficiency, unspecified; E03.9 Hypothyroidism, unspecified; R74.8 Abnormal levels of other serum enzymes; Z12.31 Encounter for screening mammogram for malignant neoplasm of breast; Z11.59 Encounter for screening for other viral diseases
CPT/HCPCS: 36415; 77063; 77067; 77080; 80053; 80061; 82306; 84439; 84443; 86803

== ENCOUNTER 2024-12-29 09:51 | Outpatient (CLI) | payer MEDICARE, SELFPAY ==
--- NOTE | ~2024-12-29 | MM_ITS ---
EXAMINATION: MM screening emile BI w ivan HISTORY: Screening TECHNIQUE: Craniocaudal and mediolateral oblique 3-D tomosynthesis images were obtained and synthetic 2-D images were generated. CAD analysis was submitted and interpreted. COMPARISON: 12/24/2023 and 10/16/2022 BREAST PARENCHYMAL COMPOSITION: The breasts are almost entirely fatty. FINDINGS: There is no evidence of suspicious mass, calcification, or architectural distortion to sugg est malignancy in either breast. There has been no suspicious interval change. IMPRESSION: 1. No mammographic evidence of malignancy. 2. Recommend routine screening mammography in one year. BI-RADS Category 1: Negative Reviewed, dictated and finalized at location B.
--- NOTE | ~2024-12-29 | DEXA_ITS ---
Bone Density Report Name: WILLIE GEORGES Age: 69 Sex: Female Ethnicity: White Date of : 1955 Indication: postmenopausal; screening for osteoporosis; Referring Provider: YENIFER ADLER Study: Bone densitometry was performed. Exam Date: December 29, 2024 Accession number: [id number] Bone Density: Region BMD T-score Z-score Classification AP Spine(L1-L4) 0.914 -1.2 0.8 Osteopenia Femoral Neck (Left) 0.621 -2.1 -0.4 Osteopenia Total Hip (Left) 0.744 -1.6 -0.2 Osteopenia Femoral Neck (Right) 0.569 -2.5 -0.8 Osteoporosis Total Hip (Right) 0.753 -1.6 -0.1 Osteopenia Total Hip Mean 0.748 -1.6 -0.2 Osteopenia World Health Organization criteria for BMD impression classify patients as: Normal (T-score at or above -1.0), Osteopenia (T-score between -1.0 and -2.5), or Osteoporosis (T-score at or below -2.5). 10-year Fracture Risk: FRAX not reported because: Some T-score for Spine Total or Hip Total or Femoral Neck at or below -2.5 Clinical Information Provided by Patient: Has used the following medications: Actonel (i.e. risedronate), Vitamin D Patient maximum height was 66 Menopause Age: 48 No regular weight bearing exercise Drinks caffeinated beverages Onset of menses at age 13 Number of children 2 Impression: The patient has osteoporosis, based on the Right Femoral Neck T-score. Discussion: INCREASED RISK OF FRACTURE. BONE DENSITY IS UNDESIRABLY LOW AT ONE OR MORE SKELETAL SITES, CONSISTENT WITH POSTMENOPAUSAL OSTEOPOROSIS. This patient's lowest T-score meets the World Health Organization's (WHO) criteria for osteoporosis at one or more sites (T-score -2.5 or below). In untreated patients, the risk of osteoporotic fracture increases approximately two-fold for each 1.0 SD decrease in T-score. Low bone density is not the only risk factor for fracture; also consider factors such as patient's age, frailty or poor health, risk of falling, risk of injury, previous osteoporotic fracture, family history of osteoporosis, cigarette smoking, low body weight, etc. Not everyone with low bone mineral density has osteoporosis; osteomalacia and other metabolic bone disorders should also be considered. Patients who have osteoporosis should be evaluated for specific diseases and conditions (secondary causes) that may cause or contribute to bone loss. The [place] [employer]ocrinologists (AACE) and National Osteoporosis Foundation (NOF) recommend pharmacologic intervention for all postmenopausal women whose T-score is in this range. The patient should follow a healthful lifestyle (good nutrition with adequate calcium and vitamin D, and appropriate weight-bearing exercise). Follow-Up: Consider a repeat BMD and Vertebral Fracture Assessment (VFA) exam in 2 years or sooner if medically necessary, to reassess this patient's status. Reported by: KAYLEE on 12/29/2024 10:42:00 AM. Reviewed, dictated and finalized at location A.
== END 2024-12-29 09:52 | disposition home or self-care (01) ==
LOC: ANHIMG 09:52
PROVIDERS: PCP Obstetrics & Gynecology; Visit Provider Nurse Practitioner
DX: Z12.31 Encounter for screening mammogram for malignant neoplasm of breast (principal); M85.89 Other specified disorders of bone density and structure, multiple sites; M81.0 Age-related osteoporosis without current pathological fracture
CPT/HCPCS: 77063; 77067; 77080

== ENCOUNTER 2025-03-29 17:32 | Emergency (ER) | payer MEDICARE, SELFPAY ==
--- NOTE | ~2025-03-29 | XR_ITS ---
XR wrist RT min 3V, XR forearm RT 2V 03/29/2025 17:54 Indication: Right arm pain after fall Procedure: 4 views right wrist and 2 views right forearm Comparison: No prior studies for comparison. Findings: There is a nondisplaced distal radial metaphyseal fracture. There is polyarticular osteoarthritis. There is a healed fifth metacarpal fracture. Impression: 1: Nondisplaced extra-articular fracture distal radial metaphysis. Reviewed, dictated and finalized at location O. Impression: 1: Nondisplaced extra-articular fracture distal radial metaphysis. Impression: 1: Nondisplaced extra-articular fracture distal radial metaphysis.
[2025-03-29 17:43] VITALS: BP 157/96; PULSE 76; RESP 16; TEMP 36.6; O2SAT 98
--- NOTE | 2025-03-29 18:20 | ED.UPPEXIN ---
HPI - Extremity Injury (Upper) General Chief Complaint: Extremity Injury, Upper Stated Complaint: R WRIST/FOREARM INJURY Time Seen by Provider: 03/29/25 18:05 Source: patient and RN notes reviewed Mode of arrival: ambulatory Limitations: no limitations History of Present Illness HPI narrative: 69-year-old female presents Express Care complaining of right wrist injury. Patient said earlier today she was on a chair when the chair went loosen she fell backwards on her bottom with her right arm hyperextended lying on her right wrist. Patient denies any loss of consciousness, hitting her head, neck pain, back pain, or any other injuries. Patient is complaining of pain primarily to the ulnar side of her wrist states that radiates up into her right elbow. Paste that the injury occurred approximately 1-2 hour ago. Related Data Home Medications ?Medication ?Instructions ?Recorded ?Confirmed ?Last Taken ?Type cholecalciferol (vitamin D3) 50 50 mcg PO DAILY 01/05/25 03/29/25 Unknown History mcg (2,000 unit) capsule Allergies Allergy/AdvReac Type Severity Reaction Status Date / Time No Known Allergies Allergy Verified 03/29/25 17:44 Review of Systems Review of Systems: CONSTITUTIONAL: Denies fever, chills, or sweats. EYES: Denies visual changes, redness, or discharge. ENT: Denies rhinorrhea, congestion, sore throat, or otalgia. CARDIOVASCULAR: Denies chest pain, palpitations, or edema. RESPIRATORY: Denies cough or dyspnea. GASTROINTESTINAL: Denies abdominal pain, nausea, vomiting, or diarrhea. GENITOURINARY: Denies dysuria or hematuria. SKIN: Denies rash, wound, or itching. MUSCULOSKELETAL: Denies back pain, joint pain, or myalgia. Positive for right wrist injury and swelling NEUROLOGIC: Denies headache, numbness, or weakness. PSYCHIATRIC: Denies anxiety or depression. All other systems reviewed are negative, except as documented in HPI. [facility]LY [facility] Past Medical History Medical History Osteoporosis Nausea after anesthesia History of kidney stones (~01/28/12) Vitamin D deficiency Hyperlipidemia, unspecified Hypothyroidism, unspecified Surgical History Surgical History S/P right knee arthroscopy History of cataract surgery x2 History of bunionectomy x2 History of carpal tunnel surgery Hx of thyroidectomy (~1999) Hx of foot surgery Family History Family History Grandparent Acute myocardial infarction Father Hypertension Unknown High cholesterol Arthritis Social History Social History Smoking status: Never smoker Alcohol intake: current Alcohol use details: socially Substance use: never Substance use type: does not use Do You Feel Safe in your Home?: Yes Lack of Transportation: No Lack of Food: Never True Current Housing: I Have Housing Concerned About Future Housing: No Difficulty Paying Gas/Electric Bills: No Difficulty Paying for Meds: No Currently Unemployed: No Education: Associate Degree Difficulty w/ Childcare or Family Care: No Living arrangements: with family Additional living arrangements comments: Occupation/Education: retired Gender identity (if verbalized by the patient): Female Sexual Orientation (if Verbalized by the Patient): Straight or Heterosexual Spiritual care concerns: No Agree to blood products: Yes Comments At the time of my signature, I reviewed and agree with the nursing past medical, surgical, social, and family history. There is no relevant family history pertinent to the patient complaint. Exam Narrative: GENERAL: This is a well-nourished, well-developed adult, in no apparent distress. They are non ill-appearing, nontoxic appearing. HEAD: normocephalic, atraumatic. EYES: Sclera clear/white. Vision is grossly intact. Conjunctiva normal. Extraocular movement intact. EARS: External ears normal Hearing grossly intact. NOSE: External nose normal THROAT: Mucous membranes moist NECK: Neck supple CARDIOVASCULAR: Regular rate and rhythm RESPIRATORY: Respiratory rate normal, respiratory effort nonlabored, no respiratory distress NEURO: awake, alert, and oriented to person, place and time. There were no obvious focal neurologic abnormalities. EXTREMITIES: Right wrist/forearm: No obvious deformity, injury, redness. The wrist is edematous with mild bruising. Limited range of motion to wrist due to pain. Pronation supination. No bony tenderness throughout the forearm. Wrist is tender to palpate primarily on the radial side. Capillary refill less than 3 seconds. Right radial Pulse 2 +palpable. Normal sensation. Neurovascular status intact distal injury. Patient make a fist, stop sign, thumbs-up sign, okay sign. Radial ulnar nerve distribution intact. BACK: Nontender without deformity. Course Course Emergency Course: Portions of this record may have been created with voice recognition software Level of Care: Express Care Visit Vital Signs Vital signs: Vital Signs Temperature 97.8 F 03/29/25 17:43 Pulse Rate 76 03/29/25 17:43 Respiratory Rate 16 03/29/25 17:43 Blood Pressure 157/96 H 03/29/25 17:43 Pulse Oximetry 98 03/29/25 17:43 Temperature 97.8 F 03/29/25 17:43 Pulse Rate 76 03/29/25 17:43 Respiratory Rate 16 03/29/25 17:43 Blood Pressure 157/96 H 03/29/25 17:43 Pulse Oximetry 98 03/29/25 17:43 Reviewed Procedures Orthopedic Splinting/Casting Injury #1: Splinting/Casting Date: 03/29/25 Splinting/Casting Time: 18:22 Side: right Upper Extremity Injury Location: wrist Upper Extremity Immobilizer: sling/shoulder immobilizer Splint: customized in ED Pre-Formed: sling OCL: sugar tong Pre-Procedure Neuro Vascular Exam: normal Post-Procedure Neuro Vascular Exam: normal Additional Comments: Patient tolerated procedure well. MDM - Extremity Injury (Upper) MDM Narrative Medical decision making narrative: X-ray of right forearm is negative for any fractures or acute findings. X-ray right wrist shows a nondisplaced distal extra-articular fracture of the radial metaphysis. Patient placed in sugar-tong splint and will be referred to orthopedist. Patient given sling for comfort. Discussed physical exam findings. Advised supportive measures and signs/symptoms to go to the ER. Pt is appropriate for outpt treatment and f/u. Differential Diagnosis Differential diagnosis: Likely sprain and strain of wrist, fracture of wrist, fracture of hand and other (Forearm fracture) Imaging Data Radiologist's impression: ITS Impressions Forearm X-Ray 03/29/25 17:57 Impression: 1: Nondisplaced extra-articular fracture distal radial metaphysis. Wrist X-Ray 03/29/25 17:57 Impression: 1: Nondisplaced extra-articular fracture distal radial metaphysis. Critical Care Time Critical Care Time Critical Care Time: No Discharge Plan Discharge Clinical Impression: Distal radius fracture, right Qualifiers: Encounter type: initial encounter Fracture type: closed Fracture morphology: other fracture Qualified Code(s): S52.591A - Other fractures of lower end of right radius, initial encounter for closed fracture Patient Disposition: Home Condition: Stable Instructions: Wrist Fracture in Adults (ED), Splint Care (ED) Additional Instructions: The x-ray of your right wrist shows a distal radius fracture. The x-ray of your right forearm is unremarkable. Please wear the splint at all times until you are evaluated by orthopedist. Please keep the splint dry and covered while showering. Rest and elevate the right arm. Apply ice 15-20 minute intervals several times a day You may take ibuprofen 600 mg to 800 mg every 6-8 hours. Do not exceed more than 800 mg of ibuprofen per dose. Do not exceed more than 3200 mg ibuprofen in a day. You may take up to 1000 mg Tylenol every 6-8 hours. Do not exceed 1000 mg per dose, do exceed more than 4000 mg of Tylenol in a day. Follow up with orthopedist in 3-5 days. Patient Language: Korean Prescriptions: No Action cholecalciferol (vitamin D3) 50 mcg (2,000 unit) capsule 50 mcg PO DAILY cetirizine [Zyrtec] 10 mg tablet 10 mg PO DAILY PRN (Reason: allergy symptoms) Qty: 30 0RF fluticasone propionate [Flonase Allergy Relief] 50 mcg/actuation spray,suspension 1 spray intranasal DAILY Qty: 16 0RF Rx Instructions: administer into each nostril guaifenesin [Mucinex] 600 mg tablet extended release 12hr 600 mg PO BID Qty: 30 0RF levothyroxine 88 mcg tablet See Rx Instructions .ROUTE .COMPLEX Qty: 90 1RF Dose Instruction: TAKE 1 TABLET BY MOUTH DAILY Rx Instructions: TAKE 1 TABLET BY MOUTH DAILY risedronate [Actonel] 150 mg tablet 150 mg PO MONTHLY Qty: 6 1RF Rx Instructions: administer at least 30 minutes before the first food or drink of the day other than water. Follow-up/Referrals: Sandra Gonsalves MD [Primary Care Provider, Family Practice] Bert Hargrove MD [Physician, Orthopedics] - 3 Days Referral Note: Distal radial fracture. Clinical Impression: Distal radius fracture, right Time of Disposition: 18:20
== END 2025-03-29 18:43 | disposition home or self-care (01) ==
PROVIDERS: PCP Family Medicine
DX: S52.591A Other fractures of lower end of right radius, initial encounter for closed fracture (principal); E78.5 Hyperlipidemia, unspecified; E03.9 Hypothyroidism, unspecified; W07.XXXA Fall from chair, initial encounter
CPT/HCPCS: 29125; 73090; 73110; 99214; A4565; G0463

== ENCOUNTER 2025-06-01 08:00 | Outpatient (RCR) | payer MEDICARE, SELFPAY ==
--- NOTE | 2025-04-28 13:01 | OTOPEVAL1 ---
Assessment and note entered by Catalino Campbell, OTR/Drake, CHT OT Evaluation Information Assessment Status Evaluation Subjective Information Patient reports functionally she is very limited. She is able to write some. Unable to feed herself with the right hand or try to close her car. Reported Pain Level Pain Score 0: Self Report Assessment OT Clinical Summary Patient referred to OT 3 weeks following right wrist ORIF. Patient presents with residual weakness and stiffness limiting return of functional flexibility in prep for returning to hand/UE use for ADLs. Skilled OT indicated for use of modalities, manual therapy, therapeutic exercise, therapeutic activities, and HEP progression to facilitate improved functional ROM and strength for ADLs. Plan of Care Interventions Therapeutic Exercise,Manual Therapy,Neuro Re- education,Therapeutic Activities,Hot Pack/Cold Pack,Ultrasound OT Services Indicated Yes Treatment Frequency and 2x/week for 8 visits Duration These treatments will address the objective and functional deficits as defined above. The patient will be advanced safely and appropriately in order for the patient to progress towards his/her prior level of function. Additional exercises will be introduced and as well as a comprehensive home exercise program upon discharge, if needed, ?to ensure carryover of functional gains achieved in the clinic. This treatment plan has been reviewed and agreement upon by the patient.
--- NOTE | 2025-04-28 13:01 | OPREHPOC ---
Outpatient Therapy Plan of Care This is a Multidisciplinary Plan of Care that may contain components documented by all disciplines (PT, OT, and ST.) OT Problem 1 OT Problem #1 Knowledge Deficit OT Goal 1 Goal / Goal Update 1. Patient to be independent with instructed materials. Target Visit 8 OT Problem 2 OT Problem #2 Impaired Range of Motion OT Goal 1 Goal / Goal Update Pt to increase active ROM of the (R) UE to increase functional flexibility for ADLs: 1. wrist flexion to 60 2. wrist extension to [address] to 15 4. wrist UD to 20 5. finger hook fist to 1 cm or less for all digits 6. thumb composite flexion to be able to touch base of V Target Visit 8 OT Problem 3 OT Problem #3 Impaired Strength OT Goal 1 Goal / Goal Update * Hold strengthening until 6 weeks post op () * 1. Patient to be able to progress to 1 lb. free weight for forearm and wrist strengthening in all planes to increase functional strength for ADLs. Target Visit 8
--- NOTE | 2025-06-01 08:48 | OTOPDC ---
Assessment and note entered by Catalino Campbell, OTCarlos Eduardo/Drake, CHT Assessment Status Discharge Diagnosis (R) distal radius fracture s/p ORIF Subjective Information Patient reports she has made a lot of progress. She reports she is now able to use the right hand to do the dishes, open the fridge/car door, and do light ADLs without difficulty or pain. She reports her biggest limitation is heavy lifting, such as pots and pans or pulling wet clothes out of the washer. Reported Pain Level Pain Score 0: Self Report Additional Pain Score Comments No pain at rest or with ADLs. Patient reports intermittent pain and soreness if she over does it. Assessment OT Clinical Summary Patient referred to OT following right wrist ORIF. Today she is 8 weeks post op. Patient presents for OT re-eval. Today her ROM is measuring near normal limits for the forearm, wrist, and hand. She demonstrates very slight residual stiffness with wrist extension, finger hook fist, and composite thumb flexion. Reviewed stretches for these ranges. Patient is currently independent with strengthening HEP with 2 lb. free weight and putty. She demonstrates gross weakness and understands that progressive strengthening will take time. At this time patient is functioning very well with ADLs and is back to using her dominant UE to feed herself, for grooming, cooking , etc. She continues to demonstrate difficulties with heavier tasks, which is expected for being 8 weeks post op. Patient to continue to complete her strengthening HEP independently. D/C OT with goals met. Plan of Care OT Services Indicated No
--- NOTE | 2025-06-01 08:48 | OPREHPOC ---
Outpatient Therapy Plan of Care This is a Multidisciplinary Plan of Care that may contain components documented by all disciplines (PT, OT, and ST.) OT Problem 1 OT Problem #1 Knowledge Deficit OT Goal 1 Goal / Goal Update 1. Patient to be independent with instructed materials. ---OT D/C 06/01/25--- 1. Met Target Visit 8 OT Problem 2 OT Problem #2 Impaired Range of Motion OT Goal 1 Goal / Goal Update Pt to increase active ROM of the (R) UE to increase functional flexibility for ADLs: 1. wrist flexion to 60 2. wrist extension to [address] to 15 4. wrist UD to 20 5. finger hook fist to 1 cm or less for all digits 6. thumb composite flexion to be able to touch base of V ---OT D/C 06/01/25--- 1. Met 2. Met 3. Met 4. Met 5. Met 6. Met Target Visit 8 OT Problem 3 OT Problem #3 Impaired Strength OT Goal 1 Goal / Goal Update * Hold strengthening until 6 weeks post op () * 1. Patient to be able to progress to 1 lb. free weight for forearm and wrist strengthening in all planes to increase functional strength for ADLs. ---OT D/C 06/01/25--- 1. Met Target Visit 8
== END 2025-06-01 11:48 | disposition home or self-care (01) ==
LOC: ANHGOSHOT 08:00
PROVIDERS: PCP Family Medicine; Visit Provider Orthopaedic Surgery
DX: Z47.89 Encounter for other orthopedic aftercare (principal)
CPT/HCPCS: 97018; 97110; 97140; 97165; 97530